=== PATIENT | male | born 1940 | race Caucasian/White ===

== ENCOUNTER 2016-05-17 12:33 | Inpatient (IN) | payer MEDICARE ==
[~2016-05-17] VITALS: Ht 177.8 cm; Wt 78.2 kg
[~2016-05-17 12:33] MED LIST: AMLO10TA2 PO; ASPI1TAB69 PO; CLOM50TA2 PO; COLA100C3 PO; LISI-515 PO; METF500T PO; MIRA33504 PO; NIAC500 PO
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
[2016-05-19 06:45] VITALS: BP 155/80; PULSE 55; RESP 16; TEMP 97.5; O2SAT 98
[2016-05-19] MEDS ORDERED: SODIUM CHLORID 0.9% 500 ML IV SCH (06:45)
[2016-05-19] MEDS ORDERED: METOPROLOL TARTRATE 25 MG TAB PO PRN (06:45)
[2016-05-19] MEDS ORDERED: LACTATED RINGER'S 1000 ML IV SCH (06:45)
[2016-05-19] MEDS ORDERED: SODIUM CHLOR 0.9% 1000 ML INJ 1,000 ML IV SCH (06:45)
[2016-05-19] MEDS ORDERED: VANCOMYCIN HCL 1000 MG ON-CALL/NS 250 ML IV SCH ×2 (06:45)
[2016-05-19] MEDS ORDERED: INSULIN HUMAN REGULAR 1,000 UNITS/10 ML VIAL SQ PRN (06:45)
[2016-05-19] MEDS ORDERED: THROMBIN (TOPICAL) 5,000 UNIT VIAL ONE (06:58)
[2016-05-19] MEDS ORDERED: VANCOMYCIN HCL 1000 MG VIAL ONE (06:58)
[2016-05-19] MEDS ORDERED: BUPIVACAINE/EPINEPHRINE 0.5% 50 ML VIAL ONE (06:58)
[2016-05-19] MEDS ORDERED: GELFOAM SIZE 100 ONE (06:58)
[2016-05-19 07:10] LABS: AUTOMATED NEUTROPHIL # 2.4 TH/MM3 (1.8-7.7); BASOPHIL % 0.7 % (0.0-2.0); EOSINOPHIL # 0.8 TH/MM3 (0-0.4); EOSINOPHIL % 13.9 % (0.0-4.0); HEMATOCRIT 43.1 % (39.0-51.0); HEMO FLAGS DIFF FINAL; LYMPHOCYTE # 1.6 TH/MM3 (1.0-4.8); MEAN CELL VOLUME 93.5 FL (80.0-100.0); MEAN CORPUSCULAR HEMOGLOBIN 31.8 PG (27.0-34.0); MEAN CORPUSCULAR HGB CONC 34.1 % (32.0-36.0); MONO % 10.4 % (0.0-8.0); PLATELET COUNT 236 TH/MM3 (150-450); RED BLOOD COUNT 4.61 MIL/MM3 (4.50-5.90); RED CELL DISTRIBUTION WIDTH 12.9 % (11.6-17.2); WHITE BLOOD COUNT 5.4 TH/MM3 (4.0-11.0)
[2016-05-19] MEDS ORDERED: FAMOTIDINE 20 MG/2 ML VIAL ONE (08:24)
[2016-05-19] MEDS ORDERED: VANCOMYCIN HCL 1000 MG VIAL OTHER ONE ×3 (09:24→12:13)
[2016-05-19] MEDS ORDERED: ePHEDrine/NS 50 MG/5 ML SYR IV ONE (12:00)
[2016-05-19] MEDS ORDERED: SODIUM CHLORID 0.9% 500 ML INJ 500 ML IV ONE (12:00)
[2016-05-19] MEDS ORDERED: PROPOFOL 200 MG/20 ML AMP IV ONE (12:00)
[2016-05-19] MEDS ORDERED: PHENYLEPH/NS 1000 MCG/10 ML SYR IV ONE (12:00)
[2016-05-19] MEDS ORDERED: NORMOSOL R INJ 2,000 ML IV ONE (12:00)
[2016-05-19] MEDS ORDERED: NEOSTIGMINE 3 MG/3 ML SYR IV ONE (12:00)
[2016-05-19] MEDS ORDERED: ONDANSETRON HCL 4 MG/2 ML VIAL IV PUSH ONE (12:00)
[2016-05-19] MEDS ORDERED: ONDANSETRON HCL 4 MG/2 ML VIAL IV PRN (12:45)
[2016-05-19] MEDS ORDERED: ACETAMINOPHEN 325 MG TAB PO PRN (12:45)
[2016-05-19] MEDS ORDERED: ACETAMINOPHEN/HYDROcodone 325 MG/10 MG TAB PO PRN (12:45)
[2016-05-19] MEDS ORDERED: ALUMINUM/MAGNESIUM/SIMETH 30 ML CUP PO PRN (12:45)
[2016-05-19] MEDS ORDERED: SODIUM CHLORIDE 0.9% FLUSH 5 ML FLUSH IVF PRN (12:45)
[2016-05-19] MEDS ORDERED: cloNIDine HCL 0.1 MG TAB PO PRN (12:45)
[2016-05-19] MEDS ORDERED: POTASSIUM CHLOR 20 MEQ PREMIX 100 ML IV PRN (12:45)
[2016-05-19] MEDS ORDERED: MENTHOL LOZENGE SUCK-ON PRN (12:45)
[2016-05-19] MEDS ORDERED: NALOXONE HCL 0.4 MG/ML AMP IV PRN (12:45)
[2016-05-19] MEDS ORDERED: DEXTROSE 50% IN WATER 50 ML VIAL(D50) IV PUSH PRN (12:45)
[2016-05-19] MEDS ORDERED: CYCLOBENZAPRINE HCL 10 MG TAB PO PRN (12:45)
[2016-05-19] MEDS ORDERED: GLUCAGON 1 MG/ML VIAL OTHER PRN (12:45)
[2016-05-19] MEDS ORDERED: MAGNESIUM SULFATE INJ 2 GM in SODIUM CHLORIDE 0.9% INJ 96 ML IV PRN (12:45)
[2016-05-19] MEDS ORDERED: RESP: ALBUTEROL 2.5 MG/3 ML NEB (PRN) NEB (12:45)
[2016-05-19] MEDS ORDERED: PROMETHAZINE INJ 25 MG/ML VIAL IM PRN (12:45)
[2016-05-19] MEDS ORDERED: CALCIUM GLUCONATE INJ 1 GM in SODIUM CHLORIDE 0.9% INJ 100 ML IV PRN (12:45)
[2016-05-19] MEDS ORDERED: ZOLPIDEM TARTRATE 5 MG TAB PO PRN (12:45)
[2016-05-19] MEDS ORDERED: diphenhydrAMINE HCL 50 MG/ML VIAL IV PRN (12:45)
[2016-05-19] MEDS ORDERED: DOCUSATE SODIUM 100 MG CAP PO PRN (12:45)
[2016-05-19] MEDS: NS + KCL 20 MEQ INJ 1,000 ML IV SCH (13:26)
--- NOTE | 2016-05-19 13:33 | RADRPT ---
EXAM DATE/TIME: 05/19/2016 08:46 [facility] COMPARISON: No previous studies available for comparison. INDICATIONS : L4-5, L5-S1 Fusion. MEDICAL HISTORY : Hypertension. Diabetes mellitus type II. SURGICAL HISTORY : None. ENCOUNTER: Initial ACUITY: 1 day PAIN SCORE: Non-responsive. LOCATION: Lumbar spine. CONCLUSION: Fluoroscopic images obtained in the operating room during placement of screws and rods fusing L4-S1. Dennis Rose MD on May 19, 2016 at 13:31 Board Certified Radiologist. This report was verified electronically.
[2016-05-19] MEDS: MORPHINE SULFATE 30 MG/30 ML PCA IV SCH (13:35)
[2016-05-19 13:52] LABS: AUTOMATED NEUTROPHIL # 12.3 TH/MM3 (1.8-7.7); BASOPHIL % 0.2 % (0.0-2.0); EOSINOPHIL % 0.3 % (0.0-4.0); HEMATOCRIT 41.5 % (39.0-51.0); HEMO FLAGS DIFF FINAL; LYMPH % 3.9 % (9.0-44.0); LYMPHOCYTE # 0.5 TH/MM3 (1.0-4.8); MEAN CELL VOLUME 95.1 FL (80.0-100.0); MEAN CORPUSCULAR HEMOGLOBIN 31.7 PG (27.0-34.0); MEAN CORPUSCULAR HGB CONC 33.3 % (32.0-36.0); MONO % 0.9 % (0.0-8.0); NEUT % 94.7 % (16.0-70.0); PLATELET COUNT 211 TH/MM3 (150-450); RED BLOOD COUNT 4.36 MIL/MM3 (4.50-5.90); RED CELL DISTRIBUTION WIDTH 13.1 % (11.6-17.2)
[2016-05-19] MEDS: PCA - TOTAL MG MORPHINE DELIVERED PER SHIFT SCH ×2 (14:00→21:13)
[2016-05-19] MEDS ORDERED: DO NOT ADM ANY ANTICOAGULANT DRUGS XX PRN (14:00)
[2016-05-19 14:17] LABS: BICARBONATE 24.4 MEQ/L (21.0-32.0); MAGNESIUM 1.9 MG/DL (1.5-2.5); POTASSIUM 3.4 MEQ/L (3.5-5.1)
[2016-05-19 14:45] VITALS: BP 136/74; PULSE 110; RESP 18; TEMP 95.7; O2SAT 97
[2016-05-19] MEDS ORDERED: MIDAZOLAM HCL 2 MG/2 ML VIAL ONE (14:56)
[2016-05-19] MEDS ORDERED: fentaNYL CITRATE 250 MCG/5 ML AMP ONE (14:56)
[2016-05-19] MEDS: INSULIN NovoLIN REGULAR SUPPLEMENTAL SCALE SQ SCH ×2 (16:00→21:00)
--- NOTE | 2016-05-19 16:04 | PD.OP ---
MD Marcus Bentley MD Stephen Minor, MD Operative Report Date of Surgery: May 19, 2016 Preoperative Diagnosis: Severe lumbar L4-5 and L5-S1 degenerative disc disease with disc height collapse along with disc protrusion, facet and ligamentum flavum hypertrophy with severe right foraminal stenosis; intractable low back pain with radiculopathy Postoperative Diagnosis: Same Procedure: Lumbar L4-5 and L5-S1 transforaminal decompression with interbody fusion; L4-S1 pedicle screw fixation; L4-5 and L5-S1 interbody cage placement; microsurgical technique Anesthesia: Gen. endotracheal by Keanu Rodriguez Surgeon: Bernard Underwood M.D. Gamb Cutter(s): Catalina Estrdaa Operation and Findings: Following initiation of general endotracheal anesthesia, the patient had a Conklin catheter placed along with sequential compression devices. A gram of vancomycin was administered intravenously and he was turned in a prone position on a Markie frame, on a Jayjay table, and all pressure points adequately padded. The lumbosacral region was then prepped with Chloraprep and sterilely draped with Ioban along the usual sterile draping. A right paraspinal skin incision was then made extending from the L4-L5-S1 levels after infiltrating the skin with 0.5% Marcaine with epinephrine solution extending down through the fascia. The muscle fibers were split using avascular fatty plane and detached from the underlying facets, transverse process and lateral portion of lamina on the right side and a self-retaining retractor used for exposure. Intraoperative fluoroscopy was also used for level of confirmation along with microscope magnification for further dissection. There was significant facet and ligamentum flavum hypertrophy noted at the L4-5 and L5-S1 levels. Right L4 -5 and L5-S1 facet was resected with a drill bit along with the lamina and there was severe foraminal and lateral recess stenosis from hypertrophied ligamentum flavum and facet which were decompressed bilaterally through the usual lateral approach. There was significant disc height collapse along with disc protrusion also leading to the foraminal stenosis. Epidural hemostasis was achieved with bipolar cautery and Gelfoam with thrombin. Subsequently entered into the disc space at the L4-5 level as well as L5-S1 level with a #15 blade and jayden were used for discectomy. I then placed PEEK cages packed with local autograft bone and more local autograft bone was packed adjacent to the cage in interspace for added interbody fusion at each level. With placement of the cages, I was able to distract the interspace and opened up the foramen further bilaterally. Subsequently in order to facilitate the fusion and provide stabilization, pedicle screw fixation was undertaken using [place] spine screws on entry point at the right L4, L5 levels at the junction of the transverse process and facet and right S1 sacral ala. Subsequently using AP and lateral fluoroscopy tap and screw placement. The screws were then connected with a zina and locked in place with caps. The construct appeared very secure at this point. The area was then copiously irrigated with Vancomycin solution and powder. The retractors were removed and the bipolar cautery used for hemostasis. The muscle fascia was then approximated using 2-0 Vicryl interrupted stitches and then 3-0 Vicryl subcuticular stitches also placed in interrupted fashion. The final skin closure was completed with Mastisol and Steri-Strips. A sterile dressing was then applied. The patient then turned in supine position, extubated and taken to recovery room. There were no intraoperative complications. All sponge and needle counts were correct at the end of procedure. Estimated blood loss about 100 ml. Bernard Underwood MD May 19, 2016 16:04
[2016-05-19 21:00] VITALS: BP 137/78; PULSE 102; RESP 16; TEMP 97.8; O2SAT 98
[2016-05-19] MEDS ORDERED: [UNRECOGNIZED DRUG - OTHER] PO SCH (21:00)
[2016-05-19] MEDS: SODIUM CHLORIDE 0.9% FLUSH 5 ML FLUSH IVF SCH (21:00)
[2016-05-19] MEDS ORDERED: CLOMIPHENE PO SCH (21:00)
[2016-05-19] MEDS: NIACIN 500 MG EXTENDED RELEASE TAB PO SCH (21:13)
[2016-05-19] MEDS: LISINOPRIL 20 MG TAB PO SCH (21:13)
[2016-05-19] MEDS: DOCUSATE SODIUM 100 MG CAP PO SCH (21:13)
[2016-05-20 01:50] VITALS: BP 133/67; PULSE 66; RESP 17; TEMP 98.2; O2SAT 98
[2016-05-20] MEDS: NS + KCL 20 MEQ INJ 1,000 ML IV SCH (02:30)
[2016-05-20 04:15] VITALS: BP 119/66; PULSE 59; RESP 17; TEMP 98; O2SAT 98
[2016-05-20 05:38] LABS: BICARBONATE 26.9 MEQ/L (21.0-32.0); POTASSIUM 4.8 MEQ/L (3.5-5.1)
[2016-05-20] MEDS: PCA - TOTAL MG MORPHINE DELIVERED PER SHIFT SCH ×3 (06:00→22:00)
[2016-05-20] MEDS: INSULIN NovoLIN REGULAR SUPPLEMENTAL SCALE SQ SCH ×4 (06:13→21:00)
[2016-05-20 07:34] VITALS: BP 146/63; PULSE 64; RESP 18; TEMP 98.9; O2SAT 96
[2016-05-20] MEDS: PANTOPRAZOLE SOD 40 MG DELAYED RELEASE TAB PO SCH (09:00)
[2016-05-20] MEDS: SODIUM CHLORIDE 0.9% FLUSH 5 ML FLUSH IVF SCH ×2 (09:00→20:36)
[2016-05-20] MEDS: LISINOPRIL 20 MG TAB PO SCH ×2 (09:41→20:36)
[2016-05-20] MEDS: DOCUSATE SODIUM 100 MG CAP PO SCH ×2 (09:41→20:36)
[2016-05-20] MEDS: ASPIRIN EC 81 MG TABEC PO SCH (09:41)
--- NOTE | 2016-05-20 10:27 | HHI.NSPN ---
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 (Dennis Glasgow) Interval History This is a 75-year-old male who presented to us for evaluation of pain in the right buttocks radiating down the posterior lateral right leg to the calf and ankle area. He states the pain started 8 months ago. The pain is worse in the buttocks and thigh. He denies any left lower extremity symptoms. He denies any paresthesias. He has been to pain management which helped but he states each injection is becoming less effective. He has also been to physical therapy which did not help him. He states right buttocks pain improves with laying down, is worse with standing or walking even short distances. He rates his pain as 8 out of 10 in intensity. He states he cannot live with this discomfort and his activity restriction. He denies any weakness or lower extremities. There is no bowel or bladder incontinence. 05/20/15: Pt doing well. 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 No radiculopathy or paresthesias in LEs. Pt ambulated in baig with PT. Urinating well. (Dennis Glasgow) Review of Systems General: Negative for: fever, chills, insomnia Respiratory: Negative for: shortness of breath, cough, sputum Cardiovascular: Negative for: chest pain Gastrointestinal: Negative for: nausea, vomitting, diarrhea, constipation ( Dennis Glasgow) Exam Results Vital Signs Date Time Temp Pulse Resp B/P Pulse Ox O2 Delivery O2 Flow Rate FiO2 05/20/16 07:34 98.9 64 18 146/63 96 05/19/16 14:29 Nasal Cannula 3 Intake and Output 05/19/16 05/19/16 05/20/16 08:00 16:00 00:00 Intake Total 2000 ml 1030 ml Output Total 750 ml Balance 2000 ml 280 ml (Dennis Glasgow) Physical Examination Resp: CTA bilaterally Heart: bradycardic. no murmurs Abd: Soft positive bs Skin: No cyanosis or erythema. Muscle: Moves all 4 extremities well. 5/5 strength in LEs. Neuro: Pt awake and alert. Follows commands well. Speech clear and appropriate. (Dennis Glasgow) Lab, Micro, Other Results Laboratory Tests Test 05/19/16 05/20/16 13:36 04:47 White Blood Count 13.0 TH/MM3 Red Blood Count 4.36 MIL/MM3 Hemoglobin 13.8 GM/DL Hematocrit 41.5 % Mean Corpuscular Volume 95.1 FL Mean Corpuscular Hemoglobin 31.7 PG Mean Corpuscular Hemoglobin 33.3 % Concent Red Cell Distribution Width 13.1 % Platelet Count 211 TH/MM3 Mean Platelet Volume 7.4 FL Neutrophils (%) (Auto) 94.7 % Lymphocytes (%) (Auto) 3.9 % Monocytes (%) (Auto) 0.9 % Eosinophils (%) (Auto) 0.3 % Basophils (%) (Auto) 0.2 % Neutrophils # (Auto) 12.3 TH/MM3 Lymphocytes # (Auto) 0.5 TH/MM3 Monocytes # (Auto) 0.1 TH/MM3 Eosinophils # (Auto) 0.0 TH/MM3 Basophils # (Auto) 0.0 TH/MM3 CBC Comment DIFF FINAL Differential Comment Sodium Level 138 MEQ/L 142 MEQ/L Potassium Level 3.4 MEQ/L 4.8 MEQ/L Chloride Level 103 MEQ/L 107 MEQ/L Carbon Dioxide Level 24.4 MEQ/L 26.9 MEQ/L Anion Gap 11 MEQ/L 8 MEQ/L Blood Urea Nitrogen 12 MG/DL 15 MG/DL Creatinine 0.93 MG/DL 1.18 MG/DL Estimat Glomerular Filtration 79 ML/MIN 60 ML/MIN Rate Random Glucose 220 MG/DL 182 MG/DL Calcium Level 8.1 MG/DL 8.3 MG/DL Magnesium Level 1.9 MG/DL 05/19/16 05/19/16 05/20/16 15:00 23:00 07:00 Intake Total 2000 ml 1030 ml 620 ml Output Total 750 ml Balance 2000 ml 280 ml 620 ml Intake Oral 450 ml IV Total 580 ml 620 ml Other 2000 ml Output Urine Total 750 ml (eDnnis Glasgow) Medical Decision Making Impression and Plan A: 75 y/o M s/p L4/L5 and L5/S1 TLIF with cage and pedicle screw fixation P: Continue with pain control Continue with PT 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 He is requesting his Metformin be restarted. We will restart his Metformin per his request and check his blood glucose bid. (Dennis Glasgow) Attending Statement The exam, history, and the medical decision-making described in the above note were completed with the assistance of the mid-level provider. I reviewed and agree with the findings presented. I attest that I had a [id number] encounter with the patient on the same day, and personally performed and documented my assessment and findings in the medical record. (Bernard Underwood MD) Dennis Glasgow May 20, 2016 10:27 Bernard Underwood MD May 20, 2016 15:03
[2016-05-20] MEDS: MORPHINE SULFATE 30 MG/30 ML PCA IV SCH (10:48)
[2016-05-20 11:35] VITALS: BP 158/74; PULSE 67; RESP 18; TEMP 98.3; O2SAT 96
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
[2016-05-20] MEDS ORDERED: CYCL1TAB29 PO (14:07)
[2016-05-20] MEDS ORDERED: HYDR-3366 PO (14:07)
[2016-05-20 16:00] VITALS: BP_SYST 102; BP_SYST 152; BP_DIAS 58; BP_DIAS 86; PULSE 82; PULSE 86; RESP 18; TEMP 96; TEMP 97.2; O2SAT 95
[2016-05-20 20:00] VITALS: BP 146/69; PULSE 73; RESP 16; TEMP 100.6; O2SAT 93
[2016-05-20] MEDS: MAGNESIUM HYDROXIDE SUSP 30 ML CUP PO PRN (20:36)
[2016-05-20] MEDS: NIACIN 500 MG EXTENDED RELEASE TAB PO SCH (20:36)
[2016-05-20] MEDS: CYCLOBENZAPRINE HCL 10 MG TAB PO SCH (20:36)
[2016-05-21] VITALS: BP 135/70; PULSE 55; RESP 20; TEMP 97.7; O2SAT 96
[2016-05-21] MEDS: ACETAMINOPHEN/HYDROcodone 325 MG/10 MG TAB PO PRN ×3 (03:36→17:43)
[2016-05-21] MEDS: PCA - TOTAL MG MORPHINE DELIVERED PER SHIFT SCH (04:19)
[2016-05-21] MEDS: CYCLOBENZAPRINE HCL 10 MG TAB PO SCH ×3 (05:00→20:52)
[2016-05-21 06:59] LABS: BICARBONATE 27.7 MEQ/L (21.0-32.0); POTASSIUM 4.1 MEQ/L (3.5-5.1)
[2016-05-21] MEDS: INSULIN NovoLIN REGULAR SUPPLEMENTAL SCALE SQ SCH ×5 (07:00→23:19)
[2016-05-21 07:09] LABS: AUTOMATED NEUTROPHIL # 7.8 TH/MM3 (1.8-7.7); BASOPHIL % 0.4 % (0.0-2.0); EOSINOPHIL # 0.2 TH/MM3 (0-0.4); EOSINOPHIL % 1.9 % (0.0-4.0); HEMATOCRIT 34.7 % (39.0-51.0); HEMO FLAGS DIFF FINAL; LYMPH % 13.9 % (9.0-44.0); LYMPHOCYTE # 1.5 TH/MM3 (1.0-4.8); MEAN CELL VOLUME 93.6 FL (80.0-100.0); MEAN CORPUSCULAR HEMOGLOBIN 31.8 PG (27.0-34.0); MONO % 10.7 % (0.0-8.0); NEUT % 73.1 % (16.0-70.0); PLATELET COUNT 191 TH/MM3 (150-450); RED BLOOD COUNT 3.71 MIL/MM3 (4.50-5.90); RED CELL DISTRIBUTION WIDTH 12.6 % (11.6-17.2); WHITE BLOOD COUNT 10.7 TH/MM3 (4.0-11.0)
[2016-05-21 08:00] VITALS: BP 145/70; PULSE 68; RESP 16; TEMP 99; O2SAT 94
[2016-05-21] MEDS: LISINOPRIL 20 MG TAB PO SCH ×2 (10:10→20:52)
[2016-05-21] MEDS: PANTOPRAZOLE SOD 40 MG DELAYED RELEASE TAB PO SCH (10:10)
[2016-05-21] MEDS: DOCUSATE SODIUM 100 MG CAP PO SCH ×4 (10:10→20:52)
[2016-05-21] MEDS: SODIUM CHLORIDE 0.9% FLUSH 5 ML FLUSH IVF SCH ×2 (10:11→20:52)
[2016-05-21] MEDS: ASPIRIN EC 81 MG TABEC PO SCH (10:11)
[2016-05-21] MEDS: metFORMIN HCL 500 MG TAB PO SCH (10:11)
[2016-05-21] MEDS: MAGNESIUM HYDROXIDE SUSP 30 ML CUP PO PRN (10:15)
[2016-05-21 12:00] VITALS: BP 124/71; PULSE 60; RESP 16; TEMP 97; O2SAT 94
[2016-05-21] MEDS: NS + KCL 20 MEQ INJ 1,000 ML IV SCH (12:04)
--- NOTE | 2016-05-21 14:39 | HHI.PR ---
Subjective Remarks No new complaints. Objective Vitals Vital Signs Date Time Temp Pulse Resp B/P Pulse Ox O2 Delivery O2 Flow Rate FiO2 05/21/16 08:00 99.0 68 16 145/70 94 05/21/16 00:00 97.7 55 20 135/70 96 05/20/16 20:00 100.6 73 16 146/69 93 05/20/16 19:00 Room Air 05/20/16 16:00 96.0 86 18 152/86 95 05/20/16 05/20/16 05/21/16 15:00 23:00 07:00 Intake Total 960 ml 480 ml 405 ml Output Total 1200 ml 675 ml 400 ml Balance -240 ml -195 ml 5 ml Intake Oral 960 ml 480 ml 240 ml IV Total 165 ml Output Urine Total 1200 ml 675 ml 400 ml # Bowel Movements 0 Result Diagram: 05/21/16 0515 05/21/16 0515 Imaging Last Impressions Lumbar Spine X-Ray 05/19/16 0000 Signed Impressions: Service Date/Time: May 08:46 - CONCLUSION: Fluoroscopic images obtained in the operating room during placement of screws and rods fusing L4-S1. Dennis Rose MD Objective Remarks GENERAL: This is a well-nourished, well-developed patient, in no apparent distress. CARDIOVASCULAR: Regular rate and rhythm without murmurs, gallops, or rubs. RESPIRATORY: Clear to auscultation. Breath sounds equal bilaterally. No wheezes , rales, or rhonchi. GASTROINTESTINAL: Abdomen soft, non-tender, nondistended. Normal active bowel sounds MUSCULOSKELETAL: Extremities without clubbing, cyanosis, or edema. NEURO: Alert & Oriented x4 to person, place, time, situation. Moves all ext x4 A/P Problem List: (1) Lumbar stenosis with neurogenic claudication Status: Chronic Plan: - Pt s/p L4/L5 and L5/S1 TLIF with cage and pedicle screw fixation with Dr. Underwood on 05/19/16 - Post-op pain control per NeuroSx - PT daily - IS - Constipation precautions - DVT prophylaxis 05/21/16 - pt interviewed and examined - continue treatment plan as outlined above (2) Low back pain Status: Chronic Plan: - See above (3) Diabetes mellitus Status: Chronic Plan: - Hgb A1C 6.0% on 04/12/16 - Metformin 500mg po daily - Accu checks BID (4) HTN (hypertension) Status: Chronic Plan: - stable - lisinopril, norvasc (5) Hyperlipidemia Status: Chronic Problem Qualifiers (1) Diabetes mellitus: Qualified Code: E11.8 - Type 2 diabetes mellitus with complication, without long-term current use of insulin (2) Hyperlipidemia: Qualified Code: E78.5 - Hyperlipidemia, unspecified hyperlipidemia type Jayme Michelle DO May 21, 2016 14:38
[2016-05-21] MEDS ORDERED: BISACODYL 10 MG SUPP PR PRN (15:00)
[2016-05-21] MEDS ORDERED: SOD PHOSPHATE/SOD BIPHOSPHATE (ADULT) ENEMA 133ML PR PRN (15:00)
[2016-05-21 16:00] VITALS: BP 152/75; PULSE 69; RESP 16; TEMP 98.5; O2SAT 94
[2016-05-21] MEDS: BISACODYL 10 MG SUPP PR PRN (16:21)
[2016-05-21 20:00] VITALS: BP 126/76; PULSE 61; RESP 16; TEMP 97.5; O2SAT 96
[2016-05-21] MEDS: NIACIN 500 MG EXTENDED RELEASE TAB PO SCH (20:51)
--- NOTE | 2016-05-21 23:22 | HHI.NSPN ---
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 Interval History L4-S1 TLIF 05/19/16. System Review Comments Moderate low back pain. No lower extremity symptoms. No bowel or bladder dysfunction. Exam Results Vital Signs Date Time Temp Pulse Resp B/P Pulse Ox O2 Delivery O2 Flow Rate FiO2 05/21/16 20:00 97.5 61 16 126/76 96 05/20/16 19:00 Room Air 05/19/16 14:29 3 Intake and Output 05/20/16 05/20/16 05/21/16 08:00 16:00 00:00 Intake Total 860 ml 720 ml 480 ml Output Total 600 ml 600 ml 675 ml Balance 260 ml 120 ml -195 ml Physical Examination Resp: CTA bilaterally Heart: bradycardic. no murmurs Abd: Soft positive bs Skin: No cyanosis or erythema. Muscle: Moves all 4 extremities well. 5/5 strength in LEs. Ambulates well without assistance. LSO brace in place Neuro: Pt awake and alert. Follows commands well. Speech clear and appropriate. Lab, Micro, Other Results Laboratory Tests Test 05/21/16 05:15 White Blood Count 10.7 TH/MM3 Red Blood Count 3.71 MIL/MM3 Hemoglobin 11.8 GM/DL Hematocrit 34.7 % Mean Corpuscular Volume 93.6 FL Mean Corpuscular Hemoglobin 31.8 PG Mean Corpuscular Hemoglobin 34.0 % Concent Red Cell Distribution Width 12.6 % Platelet Count 191 TH/MM3 Mean Platelet Volume 7.7 FL Neutrophils (%) (Auto) 73.1 % Lymphocytes (%) (Auto) 13.9 % Monocytes (%) (Auto) 10.7 % Eosinophils (%) (Auto) 1.9 % Basophils (%) (Auto) 0.4 % Neutrophils # (Auto) 7.8 TH/MM3 Lymphocytes # (Auto) 1.5 TH/MM3 Monocytes # (Auto) 1.2 TH/MM3 Eosinophils # (Auto) 0.2 TH/MM3 Basophils # (Auto) 0.0 TH/MM3 CBC Comment DIFF FINAL Differential Comment Sodium Level 135 MEQ/L Potassium Level 4.1 MEQ/L Chloride Level 102 MEQ/L Carbon Dioxide Level 27.7 MEQ/L Anion Gap 5 MEQ/L Blood Urea Nitrogen 15 MG/DL Creatinine 0.90 MG/DL Estimat Glomerular Filtration 82 ML/MIN Rate Random Glucose 111 MG/DL Calcium Level 8.2 MG/DL Magnesium Level 2.0 MG/DL Medical Decision Making Impression and Plan Impression: Doing well following L4-S1 TLIF No lower extremity symptoms or deficit. Plan: Patient encouraged to continue to increase ambulation as tolerated Continue present pain medications Diet as tolerated Plan discharge home 05/22/16 if continues to progress well. Renard Conrad MD May 21, 2016 23:22
[2016-05-22] VITALS: BP 114/54; PULSE 57; RESP 16; TEMP 97.6; O2SAT 97
[2016-05-22] MEDS: CYCLOBENZAPRINE HCL 10 MG TAB PO SCH ×3 (05:09→21:28)
[2016-05-22] MEDS: BISACODYL 10 MG SUPP PR PRN (05:09)
[2016-05-22] MEDS: ACETAMINOPHEN/HYDROcodone 325 MG/10 MG TAB PO PRN ×2 (05:09→21:29)
[2016-05-22] MEDS: MAGNESIUM HYDROXIDE SUSP 30 ML CUP PO PRN (07:49)
[2016-05-22] MEDS: LISINOPRIL 20 MG TAB PO SCH ×2 (07:49→21:28)
[2016-05-22] MEDS: ASPIRIN EC 81 MG TABEC PO SCH (07:49)
[2016-05-22] MEDS: metFORMIN HCL 500 MG TAB PO SCH (07:49)
[2016-05-22] MEDS: PANTOPRAZOLE SOD 40 MG DELAYED RELEASE TAB PO SCH (07:49)
[2016-05-22] MEDS: DOCUSATE SODIUM 100 MG CAP PO SCH ×4 (07:49→21:28)
[2016-05-22 08:00] VITALS: BP 158/79; PULSE 73; RESP 16; TEMP 97.8; O2SAT 94
[2016-05-22] MEDS: MAGNESIUM CITRATE SOLN 300 ML BTL PO ONE (09:00)
[2016-05-22 12:00] VITALS: BP 135/67; PULSE 64; RESP 16; TEMP 98.1; O2SAT 97
--- NOTE | 2016-05-22 12:59 | HHI.DCPOC ---
Discharge Care Plan Diagnosis: (1) Lumbar degenerative disc disease (2) Lumbar stenosis with neurogenic claudication Your Health Problems Are: Difficulty with ADL Incision/Drains Exercise Tolerance Chronic Pain Goals to Promote Your Health * To prevent worsening of your condition and complications * To maintain your health at the optimal level Directions to Meet Your Goals Take your medications as prescribed Follow your dietary instruction Follow activity as directed Keep your appointments as scheduled Take your immunizations and boosters as scheduled If your symptoms worsen call your PCP, if no PCP go to Urgent Care Center or Emergency Room Smoking is Dangerous to Your Health. Avoid second hand smoke Call the 24-hour hour crisis hotline for domestic abuse at Renard Conrad MD May 22, 2016 12:59
--- NOTE | 2016-05-22 13:02 | HHI.FF ---
Face to Face Verification Diagnosis: (1) Lumbar foraminal stenosis (2) Lumbar stenosis with neurogenic claudication (3) Lumbar disc prolapse with compression radiculopathy Physical Therapy Order: Evaluate and Treat, Improve ambulation, Strength and gait training I have seen patient Joseph Londono on 05/22/16. My clinical findings support the need for the requested home health care services because: Ltd mobility - disease progression Deconditioned w/ increased weakness Limited ability to care for self I certify that my clinical findings support that this patient is homebound because: Post-op weakness Unsteady gait/balance Unsafe to leave home unassisted Unable to use public transportation Renard Conrad MD May 22, 2016 13:02
[2016-05-22] MEDS: NS + KCL 20 MEQ INJ 1,000 ML IV SCH (15:00)
[2016-05-22 16:00] VITALS: BP 146/72; PULSE 69; RESP 16; TEMP 98.1; O2SAT 93
[2016-05-22 20:08] VITALS: BP 152/86; PULSE 86; RESP 17; TEMP 98.6; O2SAT 95
[2016-05-22] MEDS: NIACIN 500 MG EXTENDED RELEASE TAB PO SCH (21:28)
[2016-05-22] MEDS: SODIUM CHLORIDE 0.9% FLUSH 5 ML FLUSH IVF SCH (21:29)
--- NOTE | 2016-05-22 22:36 | HHI.NSPN ---
History Chief Complaint: Incisional back pain controlled with ALARM SECURITY OR SURVEILLANCE MONITOR. Interval History L4-S1 TLIF 05/19/16. 05/22/16: Patient initially doing relatively well in the morning, but in the afternoon significant nausea with some emesis reported per nursing staff Exam Results Vital Signs Date Time Temp Pulse Resp B/P Pulse Ox O2 Delivery O2 Flow Rate FiO2 05/22/16 16:00 98.1 69 16 146/72 93 05/20/16 19:00 Room Air 05/19/16 14:29 3 Intake and Output 05/21/16 05/21/16 05/22/16 08:00 16:00 00:00 Intake Total 405 ml 480 ml 480 ml Output Total 400 ml Balance 5 ml 480 ml 480 ml Physical Examination Resp: CTA bilaterally Heart: bradycardic. no murmurs Abd: Soft positive bs. Nontender. No distention Skin: No cyanosis or erythema. Muscle: Moves all 4 extremities well. 5/5 strength in LEs. Neuro: Mild lethargy. Follows commands well. Speech clear and appropriate. Medical Decision Making Impression and Plan Impression: Doing well following L4-S1 TLIF No lower extremity symptoms or deficit. Discharge home today held due to nausea and vomiting and difficulty with constipation. Plan: Patient encouraged to continue to increase ambulation as tolerated Continue present pain medications Diet as tolerated Plan discharge home 05/23/16 if no further GI symptoms. Recheck labs in Renard Tao MD May 22, 2016 22:36
[2016-05-23 00:04] VITALS: BP 117/57; PULSE 63; RESP 17; TEMP 98.4; O2SAT 92
[2016-05-23 00:38] VITALS: BP 102/55; PULSE 91; RESP 16; TEMP 98.4; O2SAT 98
[2016-05-23] MEDS: CYCLOBENZAPRINE HCL 10 MG TAB PO SCH ×2 (05:31→13:26)
[2016-05-23] MEDS: ACETAMINOPHEN/HYDROcodone 325 MG/10 MG TAB PO PRN (05:32)
[2016-05-23 06:38] LABS: AUTOMATED NEUTROPHIL # 4.4 TH/MM3 (1.8-7.7); BASOPHIL % 0.2 % (0.0-2.0); BICARBONATE 32.5 MEQ/L (21.0-32.0); EOSINOPHIL # 0.3 TH/MM3 (0-0.4); EOSINOPHIL % 4.5 % (0.0-4.0); HEMATOCRIT 36.1 % (39.0-51.0); HEMO FLAGS DIFF FINAL; LYMPHOCYTE # 1.5 TH/MM3 (1.0-4.8); MEAN CELL VOLUME 93.7 FL (80.0-100.0); MEAN CORPUSCULAR HEMOGLOBIN 31.9 PG (27.0-34.0); MEAN CORPUSCULAR HGB CONC 34.1 % (32.0-36.0); MONO % 10.7 % (0.0-8.0); NEUT % 62.6 % (16.0-70.0); PLATELET COUNT 226 TH/MM3 (150-450); POTASSIUM 4.7 MEQ/L (3.5-5.1); RED BLOOD COUNT 3.85 MIL/MM3 (4.50-5.90); RED CELL DISTRIBUTION WIDTH 12.4 % (11.6-17.2)
[2016-05-23 08:00] VITALS: BP 117/57; PULSE 61; RESP 19; TEMP 98.3; O2SAT 95
[2016-05-23] MEDS: DOCUSATE SODIUM 100 MG CAP PO SCH ×2 (09:00→09:42)
[2016-05-23] MEDS: metFORMIN HCL 500 MG TAB PO SCH (09:42)
[2016-05-23] MEDS: LISINOPRIL 20 MG TAB PO SCH (09:42)
[2016-05-23] MEDS: ASPIRIN EC 81 MG TABEC PO SCH (09:42)
[2016-05-23] MEDS: PANTOPRAZOLE SOD 40 MG DELAYED RELEASE TAB PO SCH (09:42)
[2016-05-23] MEDS: SODIUM CHLORIDE 0.9% FLUSH 5 ML FLUSH IVF SCH (09:44)
[2016-05-23 11:47] VITALS: BP 158/74; PULSE 62; RESP 18; TEMP 96; O2SAT 98
[2016-05-23] MEDS: NS + KCL 20 MEQ INJ 1,000 ML IV SCH (13:48)
--- NOTE | 2016-07-09 20:00 | HHI.DS ---
Discharge Summary Admission Date May 19, 2016 at 06:09 Discharge Date: May 23, 2016 Admitting Diagnosis (1) Lumbar stenosis with neurogenic claudication ICD Code: M48.06 (2) Low back pain Diagnosis: Principal ICD Code: M54.5 (3) Diabetes mellitus Diagnosis: Secondary ICD Code: E11.9 (4) HTN (hypertension) Diagnosis: Secondary ICD Code: I10 (5) Hyperlipidemia Diagnosis: Secondary ICD Code: E78.5 Procedures Lumbar L4/L5 and L5/S1 transforaminal decompression with interbody fusion; L4- S1 pedicle screw fixation; L4/L5 and L5/S1 interbody cage placement by Dr. Underwood on 05/19/16 Brief History This is a 75 y/o M who presented to us for an evaluation of pain in the right buttocks radiating down the posterior lateral right leg to the calf and ankle area. He states the pain started 8 months ago. The pain is worse in the buttocks and thigh. He denies any left lower extremity symptoms. He denies any paresthesias. He has been to pain management which helped but he states each injection is becoming less effective. he has also been to physical therapy which did not help him. He states right buttocks pain improves with laying down, is worse with standing or walking even short distances. He rates his pain as 8 out of 10 in intensity. He states he cannot live with this discomfort and his activity restriction. he denies any weakness in the lower extremities. There is no bowel or bladder incontinence. Imaging MRI of the lumbar spine from February 01, 2016 reveals multilevel degenerative disc disease with facet arthropathy and facet hypertrophy, and disc degeneration at the L4/L5 and L5/S1 level along with endplate changes and near complete disc height collapse and foraminal stenosis. Hospital Course Pt underwent the above noted procedure performed by Dr. Underwood. There was no intraoperative complications. Postoperatively pt was admitted to the medical/ surgical floor. Hospitalist was consulted for medial management. PT was consulted and pts activity was increased. Pts GEOLOGICAL ENGINEER was discontinued. Pts pain was controlled. He was discharged home in stable condition. Pt Condition on Discharge: Stable Discharge Disposition: Discharge Home Discharge Instructions DIET: Follow Instructions for: Diabetic Diet ACTIVITIES You can perform: Shower Only-No Bath Activities to Avoid: Lifting/Bending, Prolonged Standing, Strenuous Activity, Bathing, Driving Follow up Referrals: Home Health New Medications: Cyclobenzaprine (Flexeril) 10 Mg Tab 10 MG PO TID Muscle Spasm #60 Ref 0 TAB Hydrocodone-Acetaminophen (Daisy) 10-325 Mg Tab 1 TAB PO Q4H PRN PAIN #90 Ref 0 TAB Continued Medications: Amlodipine (Amlodipine) 10 Mg Tab 10 MG PO HS Blood Pressure Management #30 Ref 0 TAB Aspirin (Aspirin) 81 Mg Tabdr 81 MG PO DAILY TAB Clomiphene (Clomiphene) 50 Mg Tab 25 MG PO HS Docusate Sodium (Colace) 100 Mg Cap 100 MG PO BID PRN CONSTIPATION #60 Ref 0 CAP Lisinopril (Lisinopril) 20 Mg Tab 20 MG PO BID #30 Ref 0 TAB Metformin (Metformin) 500 Mg Tab 500 MG PO DAILY With a meal Blood Sugar Management #30 Ref 0 TAB Niacin ER (Niaspan) 500 Mg Tab 500 MG PO HS Cholesterol Management #30 Ref 0 TAB Polyethylene Glycol 3350 Powder (Miralax Powder) 17 Gm Powd Unknown Dose PO DAILY Mix and dissolve one measuring cap-ful (17 grams) in water or juice. PRN CONSTIPATION #1 Ref 0 BOTTLE Dennis Glasgow Jul 09, 2016 20:00
== END 2016-05-23 14:59 | disposition home or self-care (01) | DRG 460 ==
LOC: HSDI 05-19 06:09 → N06A 05-19 14:44
PROVIDERS: ADMIT Neurological Surgery; ATTEND Neurological Surgery
PROC: 0SG30AJ Fusion of Lumbosacral Joint with Interbody Fusion Device, Posterior Approach, Anterior Column, Open Approach (ICD-10-PCS; 2016-05-19)
PROC: 0ST20ZZ Resection of Lumbar Vertebral Disc, Open Approach (ICD-10-PCS; 2016-05-19)
PROC: 0ST40ZZ Resection of Lumbosacral Disc, Open Approach (ICD-10-PCS; 2016-05-19)
PROC: 0SG00AJ Fusion of Lumbar Vertebral Joint with Interbody Fusion Device, Posterior Approach, Anterior Column, Open Approach (ICD-10-PCS; principal; 2016-05-19 08:27)
DX: M51.16 Intervertebral disc disorders with radiculopathy, lumbar region (principal); E11.8 Type 2 diabetes mellitus with unspecified complications; R00.1 Bradycardia, unspecified; I10 Essential (primary) hypertension; M51.17 Intervertebral disc disorders with radiculopathy, lumbosacral region; E78.5 Hyperlipidemia, unspecified; N40.0 Benign prostatic hyperplasia without lower urinary tract symptoms; G47.33 Obstructive sleep apnea (adult) (pediatric); Z82.49 Family history of ischemic heart disease and other diseases of the circulatory system; Z80.0 Family history of malignant neoplasm of digestive organs; G89.29 Other chronic pain; R11.2 Nausea with vomiting, unspecified; K59.00 Constipation, unspecified
CPT/HCPCS: 72100; 76000; 80048; 82948; 83735; 85025; 86850; 86900; 86901; 94150; C1713; J0690; J2250; J2270; J2370; J2405; J2710; J3010; J3370; J3480; J7040; J7120; L0484

== ENCOUNTER 2016-08-14 06:27 | Inpatient (IN) | payer MEDICARE ==
[~2016-08-14] VITALS: Ht 177.8 cm; Wt 79.8 kg
[2016-08-14] VITALS (17 sets, daily range): BP systolic 118–177; BP diastolic 54–91; PULSE 40–87; RESP 15–28; TEMP 98.2–98.8; O2SAT 92–100
[~2016-08-14 06:27] MED LIST changes: +CYCL1TAB29 PO; +HYDR-3366 PO
[2016-08-14] MEDS ORDERED: SODIUM CHLOR 0.9% 1000 ML INJ 1,000 ML IV ONE ×2 (06:33→06:45)
[2016-08-14] MEDS ORDERED: HEPARIN SODIUM - IV 10,000 UNITS/10 ML VIAL IV STA (06:33)
[2016-08-14] MEDS ORDERED: ASPIRIN 81 MG CHEW TAB PO STA (06:33)
--- NOTE | 2016-08-14 06:40 | PD ---
HPI Chief Complaint: STEMI Alert Time Seen by Provider: 06:33 Travel History International Travel<30 days: No Contact w/Intl Traveler<30days: No Traveled to known affect area: No History of Present Illness HPI 75-year-old male with history of HTN, DM here with complaint of chest pain as a STEMI alert per EMS. Patient states that approximately 4 hours ago he began to have some burning substernal chest pain. This got worse over the course the last hour prompting him to call EMS. He notes associated shortness of breath, lightheadedness, nausea and diaphoresis. Upon EMS arrival twelve-lead EKG shows inferior ST elevation in II, III, and F aVF with reciprocal changes and semi-alert was activated. He was given aspirin, nitroglycerin prior to arrival without change in vital signs and he's remained hemodynamically stable per EMS. Patient denies any history of coronary disease, he believes he sees Dr. rivera of cardiology for control of his blood pressure but he is not positive. PFSH Past Medical History Cancer: No Cardiovascular Problems: Yes (HX HEART RHYTHM PROBLEM) Diabetes: Yes (TYPE II) Diminished Hearing: No Endocrine: Yes Genitourinary: Yes (ENLARGED PROSTATE) Hepatitis: No Hiatal Hernia: No Hypertension: Yes Immune Disorder: No Musculoskeletal: Yes (LOWER BACK PAIN, DDD) Neurologic: No Psychiatric: No Reproductive: No Respiratory: No (PAST HX SLEEP APNEA) Immunizations Current: Yes Thyroid Disease: No Past Surgical History Abdominal Surgery: No AICD: No Body Medical Devices: NONE Cardiac Surgery: No Ear Surgery: No Endocrine Surgery: No Eye Surgery: No Genitourinary Surgery: No Joint Replacement: No Oral Surgery: Yes (TONSILLECTOMY/ADENOIDECTOMY) Pacemaker: No Thoracic Surgery: No Other Surgery: Yes Social History Alcohol Use: No Tobacco Use: No Substance Use: No Allergies-Medications (Allergen,Severity, Reaction): Coded Allergies: HMG-CoA Reductase Inhibitors (Verified Allergy, Unknown, 06/30/16) Reported Meds & Prescriptions Reported Meds & Active Scripts Active [place] (Hydrocodone-Acetaminophen) 10-325 Mg Tab 1 Tab PO Q4H PRN Reported Colace (Docusate Sodium) 100 Mg Cap 100 Mg PO BID PRN Miralax Powder (Polyethylene Glycol 3350 Powder) 17 Gm Powd Unknown Dose PO DAILY PRN Mix and dissolve one measuring cap-ful (17 grams) in water or juice. Amlodipine (Amlodipine Besylate) 10 Mg Tab 10 Mg PO HS Niaspan (Niacin) 500 Mg Tab 500 Mg PO HS Metformin (Metformin HCl) 500 Mg Tab 500 Mg PO DAILY With a meal Lisinopril 20 Mg Tab 20 Mg PO BID Aspirin 81 Mg Tabdr 81 Mg PO DAILY Review of Systems ROS Limitations: Clinical Condition Except as stated in HPI: all other systems reviewed are Neg Physical Exam Exam Limitations: Clinical Condition Narrative GENERAL: Well-appearing male anxious SKIN: Cool and diaphoretic HEAD: Normocephalic. EYES: No scleral icterus. No injection or drainage. ENT: Mucous membranes pink and moist. NECK: Supple CARDIOVASCULAR: Regular rate and rhythm. No murmur appreciated. RESPIRATORY: No accessory muscle use. Clear to auscultation. Breath sounds equal bilaterally. GASTROINTESTINAL: Abdomen soft, non-tender, nondistended. MUSCULOSKELETAL: No obvious deformities. No edema. NEUROLOGICAL: Awake and alert. Motor grossly within normal limits. Normal speech. PSYCHIATRIC: Appropriate mood and affect; insight and judgment normal. Data Data Last Documented VS Vital Signs Date Time Temp Pulse Resp B/P Pulse Ox O2 Delivery O2 Flow Rate FiO2 08/14/16 06:37 97 Nasal Cannula 3 08/14/16 06:33 98.8 71 28 Orders Troponin I (08/14/16 06:33) Ckmb (Isoenzyme) Profile (08/14/16 06:33) Complete Blood Count With Diff (08/14/16 06:33) I-Stat Profile (08/14/16 06:33) I-Stat Creatinine (08/14/16 06:33) Calcium (08/14/16 06:33) Magnesium (Mg) (08/14/16 06:33) Prothrombin Time / Inr (Pt) (08/14/16 06:33) Act Partial Throm Time (Ptt) (08/14/16 06:33) B-Type Natriuretic Peptide (08/14/16 06:33) Chest, Single Ap (08/14/16 06:33) Electrocardiogram (08/14/16 06:33) Oxygen Administration (08/14/16 06:33) Iv Access Insert/Monitor (08/14/16 06:33) Oximetry (08/14/16 06:33) Sodium Chlor 0.9% 1000 Ml Inj (Ns 1000 M (08/14/16 06:33) Sodium Chloride 0.9% Flush (Ns Flush) (08/14/16 06:45) Aspirin Chew (Aspirin Chew) (08/14/16 06:33) Heparin Inj (Heparin Inj) (08/14/16 06:33) Morphine Inj (Morphine Inj) (08/14/16 06:45) Ondansetron Inj (Zofran Inj) (08/14/16 06:45) Sodium Chlor 0.9% 1000 Ml Inj (Ns 1000 M (08/14/16 06:45) Admit Order (Ed Use Only) (08/14/16 06:36) CKMB (08/14/16 06:26) CKMB% (08/14/16 06:26) Labs Laboratory Tests Test 08/14/16 06:26 Bedside Hemoglobin 13.9 G/DL Bedside Hematocrit 41.0 % Bedside Sodium 137 MMOL/L Bedside Potassium 4.0 MMOL/L Bedside Chloride 103 MMOL/L Bedside Blood Urea Nitrogen 27 MG/DL Bedside Creatinine 1.0 MG/DL Bedside Glucose 202 MG/DL Calcium Level 8.3 MG/DL Magnesium Level 1.9 MG/DL Total Creatine Kinase 121 U/L Creatine Kinase MB 1.9 NG/ML Troponin I 0.26 NG/ML MDM Medical Decision Making Medical Screen Exam Complete: Yes Emergency Medical Condition: Yes Medical Record Reviewed: Yes Differential Diagnosis 75-year-old male with history of DM, HTN here with complaint of chest pain. Differential includes ACS, GERD, atypical chest pain, coronary spasm, and less likely PE or dissection. Narrative Course Patient met by myself upon emergency department arrival, IV established and blood obtained. A twelve-lead EKG shows sinus rhythm with second-degree AV block with prolonging NC intervals most consistent with Wenckebach. Patient has ST elevation in inferior leads II, III, and F aVF with reciprocal changes. Right sided EKG was obtained without evidence of ST elevation in V4 R. Semi- alert was activated. Patient given normal saline bolus, aspirin, heparin, morphine and Zofran. Portal chest x-ray obtained that by my read shows no acute abnormalities, mild motion artifact. Serial blood pressures have remained stable and patient was given dose of nitroglycerin. Patient expedited to cardiac label printer. Critical Care Narrative Aggregate critical care time was 40 minutes. Time to perform other separately billable procedures was not included in the critical care time. My time did not include minutes spent treating any other patients simultaneously or on activities that did not directly contribute to the patient's treatment. The services I provided to this patient were to treat and/or prevent clinically significant deterioration that could result in: Cardiopulmonary decompensation, , disability I provided critical care services requiring my management, as noted below: Chart data review, documentation time, medication orders and management, vital sign assessments/reviewing monitor data, ordering and reviewing lab tests, ordering and interpreting/reviewing x-rays and diagnostic studies, care of the patient and discussion of the patient with the admitting physicians. Diagnosis Primary Impression: ST elevation myocardial infarction (STEMI) of inferior wall Additional Impression: 2Nd degree AV block Admitting Information Admitting Physician Requests: Admit Shruti Sy MD Aug 14, 2016 06:40
[2016-08-14] MEDS ORDERED: MORPHINE SULFATE 4 MG/ML INJ IV PUSH ONE ×2 (06:45→07:00)
[2016-08-14] MEDS ORDERED: ONDANSETRON HCL 4 MG/2 ML VIAL IV PUSH ONE (06:45)
[2016-08-14] MEDS ORDERED: SODIUM CHLORIDE 0.9% FLUSH 10 ML FLUSH IVF PRN (06:45)
--- NOTE | 2016-08-14 06:54 | RADRPT ---
EXAM DATE/TIME: 08/14/2016 06:28 [place] COMPARISON: No previous studies available for comparison. INDICATIONS : Chest pain, STEMI alert. MEDICAL HISTORY : Hypertension. Diabetes mellitus type II. SURGICAL HISTORY : None. ENCOUNTER: Initial ACUITY: 1 day PAIN SCORE: 8/10 LOCATION: Left chest FINDINGS: A single view of the chest demonstrates the lungs to be symmetrically aerated without evidence of mas s, infiltrate or effusion. The cardiomediastinal contours are unremarkable. Osseous structures are intact. CONCLUSION: No acute disease. Samuel Mon MD FACR on August 14, 2016 at 6:51 Board Certified Radiologist. This report was verified electronically.
[2016-08-14 06:56] LABS: I-STAT SODIUM 137 MMOL/L (138-146)
[2016-08-14 06:58] LABS: AUTOMATED NEUTROPHIL # 4.3 TH/MM3 (1.8-7.7); BASOPHIL # 0.1 TH/MM3 (0-0.2); BASOPHIL % 0.6 % (0.0-2.0); EOSINOPHIL # 0.5 TH/MM3 (0-0.4); EOSINOPHIL % 5.7 % (0.0-4.0); HEMATOCRIT 40.6 % (39.0-51.0); HEMO FLAGS DIFF FINAL; LYMPH % 39.8 % (9.0-44.0); LYMPHOCYTE # 3.7 TH/MM3 (1.0-4.8); MEAN CELL VOLUME 94.5 FL (80.0-100.0); MEAN CORPUSCULAR HEMOGLOBIN 32.6 PG (27.0-34.0); MEAN CORPUSCULAR HGB CONC 34.5 % (32.0-36.0); MONO % 7.2 % (0.0-8.0); NEUT % 46.7 % (16.0-70.0); PLATELET COUNT 255 TH/MM3 (150-450); RED BLOOD COUNT 4.29 MIL/MM3 (4.50-5.90); RED CELL DISTRIBUTION WIDTH 13.9 % (11.6-17.2); WHITE BLOOD COUNT 9.2 TH/MM3 (4.0-11.0)
[2016-08-14] MEDS ORDERED: NITROGLYCERIN 0.4 MG SL 25 TABS/BTL SL ONE (07:00)
[2016-08-14] MEDS ORDERED: NITROGLYCERIN INJ 5 ML ONE (07:14)
[2016-08-14] MEDS ORDERED: HEPARIN-NS/PF INJ 500 ML ONE (07:14)
[2016-08-14] MEDS ORDERED: HEPARIN SODIUM - IV 10,000 UNITS/10 ML VIAL ONE ×2 (07:14→08:01)
[2016-08-14] MEDS ORDERED: IOHEXOL 350 MG/ML 100 ML BTL (for Cath Lab) OTHER ONE (07:23)
[2016-08-14] MEDS ORDERED: MIDAZOLAM HCL 2 MG/2 ML VIAL ONE (07:24)
[2016-08-14 08:11] LABS: CREATINE KINASE 121 U/L (39-308); MAGNESIUM 1.9 MG/DL (1.5-2.5)
[2016-08-14 08:24] LABS: CKMB 1.9 NG/ML (0.5-3.6)
[2016-08-14] MEDS ORDERED: TICAGRELOR 90 MG TAB PO ONE (08:25)
[2016-08-14] MEDS ORDERED: ADENOSINE IV SOLN 3 MG/ML 2 ML VIAL ONE (08:26)
[2016-08-14] MEDS ORDERED: SODIUM NITROPRUSSIDE 50 MG/2 ML VIAL ONE (08:28)
[2016-08-14] MEDS ORDERED: NITROGLYCERIN-DEXTROSE INJ 250 ML ONE (08:59)
[2016-08-14] MEDS ORDERED: CLOPIDOGREL 300 MG TAB ONE (09:17)
[2016-08-14] MEDS: SODIUM CHLOR 0.9% 1000 ML INJ 1,000 ML IV SCH ×2 (09:35→19:35)
[2016-08-14] MEDS ORDERED: SODIUM CHLOR 0.9% 250 ML INJ 250 ML IV PRN (09:45)
[2016-08-14] MEDS ORDERED: MISC INFORMATION XX ONE (09:45)
[2016-08-14] MEDS ORDERED: MORPHINE SULFATE 4 MG/ML INJ IV PUSH PRN (09:45)
[2016-08-14] MEDS ORDERED: ATROPINE SULFATE 1 MG/ML VIAL IV PRN (09:45)
[2016-08-14] MEDS ORDERED: oxyCODONE/ACETAMINOPHEN 10 MG/325 MG TAB PO PRN (09:45)
[2016-08-14] MEDS ORDERED: oxyCODONE/ACETAMINOPHEN 5 MG/325 MG TAB PO PRN (09:45)
[2016-08-14] MEDS ORDERED: SODIUM CHLORIDE 0.9% FLUSH 10 ML FLUSH IV FLUSH PRN (09:45)
[2016-08-14] MEDS ORDERED: GLUCAGON 1 MG/ML VIAL OTHER PRN (10:30)
[2016-08-14] MEDS: INSULIN NovoLIN REGULAR SUPPLEMENTAL SCALE SQ SCH ×3 (10:30→20:48)
[2016-08-14] MEDS ORDERED: DEXTROSE 50% IN WATER 50 ML VIAL(D50) IV PUSH PRN (10:30)
[2016-08-14 10:32] LABS: PROTHROMBIN TIME - PATIENT 11.4 SEC (9.8-11.6)
[2016-08-14 10:34] LABS: APTT (PATIENT) GREATER THAN 153.4 SEC (24.3-30.1)
[2016-08-14] MEDS ORDERED: ONDANSETRON HCL 4 MG/2 ML VIAL IV PRN (11:00)
--- NOTE | 2016-08-14 12:00 | MB ---
cc: REGAN ADAIR M.D. DATE OF : 1940 DATE OF CONSULTATION: 08/14/2016 REASON FOR CONSULTATION: Critical care management. HISTORY OF PRESENT ILLNESS: The patient is a 75-year-old male with a past medical history of hypertension, diabetes mellitus and hyperlipidemia who presented with to [facility] ED with complaint of chest pain and STEMI alert per EMS. His chest pain was associated with shortness of breath, nausea, diaphoresis and feeling lightheaded. Upon EMS arrival, a 12-lead EKG showed inferior ST elevation in lead 2, 3 and aVF. The patient was given aspirin, nitroglycerin prior to arrival. He denies any history of coronary artery disease and he sees Dr. Pearl from cardiology for his hypertension. The patient was taken to the pit laborer where he underwent cardiac catheterization by Dr. Holland which showed occlusion of the RCA, status post stent placement, 60 to 70% occlusion of the mid LAD, and total occlusion of the obtuse margin. He was given Plavix, heparin, aspirin and placed on a nitro drip. When seen in the CV ICU the patient appears hemodynamically stable with blood pressure of 135/80 with a pulse of 48. The patient is on 2 liters oxygen with sats of 97%. He denies any chest pain at the present time. PAST MEDICAL HISTORY: Significant for hypertension, diabetes mellitus, hyperlipidemia and enlarged prostate. PAST SURGICAL HISTORY Previous tonsillectomy and adenoidectomy, previous spinal fusion. SOCIAL HISTORY Nonsmoker, nondrinker. ALLERGIES STATINS REPORTED MEDICATIONS: 1. Flexeril. 2. [place]. 3. Niacin. 4. Metformin. 5. Lisinopril. 6. Aspirin. 7. Amlodipine FAMILY HISTORY: Noncontributory. REVIEW OF SYSTEMS: As per HPI. The rest of the review of systems is unremarkable. FAMILY HISTORY Noncontributory. PHYSICAL EXAMINATION: The patient is a 75-year-old male lying in bed in no acute distress. Vital signs: Afebrile, temperature 98.8, blood pressure 135/80. Pulse of 48. Saturation 97% on two liters oxygen. HEENT: Atraumatic, normocephalic. Pupil equal, round, reactive to light and accommodation. Extraocular muscles intact. Conjunctivae pink. Nonicteric sclerae. Oral mucosa within normal. Neck: Supple. No JVD, adenopathy or thyromegaly. Trachea midline. Cardiovascular: Regular rate and rhythm. Normal S1-S2. No murmurs, rubs or gallops noted. Pulmonary exam: Bilateral equal air entry. No rales or wheezing. Abdomen: Soft, nontender, no distension. Positive bowel sounds. Extremities: No cyanosis, clubbing or edema. Neuro: No focal sensory deficit. LABORATORY DATA Point of care, sodium of 137, potassium 4, chloride 103, BUN 27, creatinine 1, glucose 202, calcium 8.3, total CK 121 with troponin 0.26, BNP 144, WBC 9.2, hemoglobin 14, hematocrit 40, platelet count of 255. IMAGING STUDIES: Chest x-ray in the ER showed no acute disease. EKG showed ST elevation in inferior leads 2, 3, and aVF, left axis deviation. Sinus rhythm with second-degree AV block, Mobitz type 2. IMPRESSION 1. Respiratory insufficiency. 2. Acute coronary syndrome. 3. ST elevation myocardial infarction. 4. Mobitz type 2 second-degree AV block. 5. Hypertension. 6. Diabetes mellitus. 7. Hyperlipidemia. RECOMMENDATIONS -Monitor neuro status and avoid any sedatives. The patient is awake and alert. -Continue with oxygen and maintain sats above 92%. Bronchodilator on a p.r.n. basis. -Monitor heart rate and blood pressure closely and maintain MAP greater than 65 mmHg. -Continue with aspirin 81 mg daily and Plavix 75 mg p.o. daily. -Status post cardiac cath which showed occlusion of the RCA status post stent placement in addition, 60 to 70% occlusion mid LAD and 99-100% occlusion of the obtuse margin. Case was discussed with Dr. Holland. Follow up on the echo results. -The patient is not on statins due to allergies and is not on a beta-paul due to second degree A-V block. -Will monitor renal function, I&O and electrolyte replacement as needed. Continue with IV fluids. He was placed on NS at 100 mL per hour. -Start p.o. heart healthy diet. -Monitor CBC for signs of infection which include fever and WBC. chest x-ray on arrival showed no evidence of any acute disease. Will culture if spikes a fever. -Place on sliding scale insulin with Accu-Chek q. 6-hour for glycemic control. -No indications for GI prophylaxis. DVT prophylaxis with heparin subcu. Patient denies any chest pain and appears hemodynamically stable will sign off. MD NANY Oleary/CLIVE /10:34 AM /11:21 AM [place]
[2016-08-14] MEDS: HEPARIN SODIUM - SQ 10,000 UNITS/ML VIAL SQ SCH ×2 (14:00→20:48)
--- NOTE | 2016-08-14 18:12 | MH ---
cc: DUMONTVALENTÍN DO DATE OF ADMISSION 08/14/[address] Kareen Gorman PRIMARY MEETING/EVENT PLANNER Dr. Nathaniel Pearl CHIEF COMPLAINT Chest pain. HISTORY OF THE PRESENT ILLNESS Joseph Londono is a pleasant 75-year-old male who presents to [facility] Emergency Room on August 14, 2016 due to chest pain. He states that he woke up around 2-3 a.m. and was having some burning in the substernal portion of his chest. This seemed to get worse over the course of an hour, so he finally called EMS. He does have some shortness of breath, nausea and diaphoresis. Upon arrival EKG was done showing inferior ST elevations in leads II, III and aVF. At that time a STEMI alert was called. Of note, after talking with his he was to undergo back surgery and when placed under anesthesia he started to "skip a beat". It sounds like he went into a Wenckebach rhythm. Surgery was abandoned and he followed up with Dr. Pearl for testing. After this he underwent successful back surgery with no complications. PAST MEDICAL HISTORY 1. Hypertension. 2. Diabetes mellitus. 3. Hyperlipidemia. 4. Enlarged prostate. PAST SURGICAL HISTORY 1. Spinal fusion. 2. Tonsillectomy and adenoidectomy. ALLERGIES STATINS. MEDICATIONS 1. Lisinopril 20 mg b.i.d. 2. Niacin ER 500 mg every night. 3. Metformin 500 mg daily. 4. Colace 100 mg b.i.d. 5. Maalox as needed. 6. Flexeril 10 mg t.i.d. 7. Norvasc 10 mg every night. 8. Clomiphene 25 milligrams every night. 9. Aspirin 81 mg daily. 10. [place] 1 tablet every 4 hours as needed for pain. SOCIAL HISTORY Denies tobacco, alcohol or drug abuse. FAMILY HISTORY Denies premature coronary artery disease or sudden cardiac within the family. REVIEW OF SYSTEMS 14-systems were reviewed including osteopathic, pertinent positives and negatives above, otherwise negative. PHYSICAL EXAMINATION VITAL SIGNS: Temperature 98.8, heart rate 87, blood pressure 152/81, respirations 28, pulse ox 97% on 3 liters. GENERAL: In general the patient appears in moderate to severe distress due to chest pain. HEENT: Extraocular muscles intact. Mucous membranes moist. NECK: Supple. No JVD at 45 degrees. No carotid bruits heard bilaterally. Carotid upstroke is brisk in nature. CARDIOVASCULAR: Heart is regular rate and rhythm. Positive first and second heart sounds with no noted murmurs, rubs, or gallops. LUNGS: Clear to auscultation bilaterally. No wheezes, rales or rhonchi. ABDOMEN: Soft, nontender, nondistended. No organomegaly noted. EXTREMITIES: Show no clubbing, cyanosis or edema. Femoral and distal pulses intact bilaterally. NEUROLOGIC: No focal deficits. SKIN: Warm, dry and intact. OSTEOPATHIC: No kyphoscoliosis, lordosis or paraspinal tender points. LABORATORY FINDINGS Hemoglobin 13.9, hematocrit 41.0. Potassium 4.0, BUN 27, creatinine 1.0. Troponin 0.26. Electrocardiogram (August 14, 2016 at 0631) sinus rhythm with second degree AV block, Mobitz type 1, left axis deviation, acute ST elevations inferiorly with ST depressions anteriorly consistent with an inferior posterior acute [place]. IMPRESSION 1. Acute inferior posterior myocardial infarction. 2. Chest pain concerning for coronary insufficiency. 3. History of hypertension. 4. History of hyperlipidemia. 5. History of diabetes mellitus. 6. History of a "skipping heartbeat" which sounds like possible Wenckebach. 7. Currently in second degree type 1 AV block, Wenckebach. RECOMMENDATIONS 1. Mr. Londono is currently have an acute inferior ST elevation myocardial infarction and because of this he will be taken to the lab emergently. 2. He understands risks, benefits and alternative and consents as such. 3. Will check a 2-D echo to look at his overall left ventricular function, cardiac structure and possible valvopathies. 4. Metformin will be held for 48 hours after cardiac catheterization. 5. Further recommendations will be made after coronary visualization. Thank you for allowing me to see Joseph Londono. If there are any questions please do not hesitate to call. Valentín Dumont DO VGP/KK /1:33 PM /5:52 PM
[2016-08-14] MEDS: SODIUM CHLORIDE 0.9% FLUSH 10 ML FLUSH IV FLUSH SCH (20:47)
--- NOTE | 2016-08-14 20:54 | EKG ---
Date Performed: 08/14/2016 Time Performed: 06:33:20 PTAGE: 75 years EKG: Sinus rhythm WITH 2ND DEGREE AV BLOCK, MOBITZ TYPE II MARKED LEFT AXIS DEVIATION POSSIBLE ANTERIOR MYOCARDIAL INF ARCTION MARKED ST ELEVATION, CONSIDER INFERIOR INJURY ACUTE [place] PREVIOUS TRACING : 04/23/2013 08.08 DOCTOR: Meliza Garcias Interpretating Date/Time 08/14/2016 20:52:51
--- NOTE | 2016-08-14 20:56 | EKG ---
Date Performed: 08/14/2016 Time Performed: 06:31:36 PTAGE: 75 years EKG: Sinus rhythm WITH 2ND DEGREE AV BLOCK, MOBITZ TYPE I (WECOLTKECODIE) MARKED ST ELEVATION, CONSIDER INFERIOR INJURY * ACUTE [place] PREVIOUS TRACING : 04/23/2013 08.08 DOCTOR: Meliza Garcias Interpretating Date/Time 08/14/2016 20:55:52
[2016-08-15 03:31] VITALS: BP 127/72; PULSE 61; PULSE 62; RESP 15; TEMP 98; O2SAT 95
[2016-08-15] MEDS: INSULIN NovoLIN REGULAR SUPPLEMENTAL SCALE SQ SCH ×4 (04:30→16:30)
[2016-08-15 06:00] LABS: AUTOMATED NEUTROPHIL # 4.9 TH/MM3 (1.8-7.7); BASOPHIL % 0.3 % (0.0-2.0); EOSINOPHIL # 0.2 TH/MM3 (0-0.4); EOSINOPHIL % 2.5 % (0.0-4.0); HEMATOCRIT 32.7 % (39.0-51.0); HEMO FLAGS DIFF FINAL; LYMPH % 18.5 % (9.0-44.0); LYMPHOCYTE # 1.3 TH/MM3 (1.0-4.8); MEAN CELL VOLUME 94.1 FL (80.0-100.0); MONO % 8.8 % (0.0-8.0); NEUT % 69.9 % (16.0-70.0); PLATELET COUNT 187 TH/MM3 (150-450); RED BLOOD COUNT 3.48 MIL/MM3 (4.50-5.90); RED CELL DISTRIBUTION WIDTH 14.1 % (11.6-17.2); WHITE BLOOD COUNT 7.1 TH/MM3 (4.0-11.0)
[2016-08-15] MEDS: HEPARIN SODIUM - SQ 10,000 UNITS/ML VIAL SQ SCH ×3 (06:22→20:35)
[2016-08-15 06:24] LABS: BICARBONATE 28.8 MEQ/L (21.0-32.0); POTASSIUM 3.7 MEQ/L (3.5-5.1)
[2016-08-15 07:17] VITALS: O2SAT 95
[2016-08-15 07:33] VITALS: BP 128/78; PULSE 66; RESP 20; TEMP 99.3; O2SAT 95
--- NOTE | 2016-08-15 07:46 | PD.CARD.PN ---
Subjective Subjective Remarks denies chest pain (Adriano Menezes) Objective Vital Signs / I&O Vital Signs Date Time Temp Pulse Resp B/P Pulse Ox O2 Delivery O2 Flow Rate FiO2 08/15/16 07:33 99.3 66 20 128/78 95 08/15/16 07:32 95 Room Air 08/15/16 07:17 95 21 08/15/16 03:31 97 Room Air 08/15/16 03:31 98.0 62 15 127/72 95 08/15/16 03:31 61 08/14/16 23:09 98.2 47 15 118/60 97 08/14/16 23:09 97 Room Air 08/14/16 23:09 55 08/14/16 21:40 96 21 08/14/16 19:24 98.4 59 16 146/84 99 08/14/16 19:24 99 Nasal Cannula 2.00 08/14/16 19:00 59 08/14/16 16:00 99 Nasal Cannula 2.00 08/14/16 15:00 70 08/14/16 15:00 98.6 63 16 126/73 100 08/14/16 13:43 100 2.00 08/14/16 12:00 100 Nasal Cannula 2.00 08/14/16 11:00 98.3 63 16 146/54 99 Arterial Line 08/14/16 09:40 95 21 08/14/16 09:30 98 Nasal Cannula 2.00 08/14/16 09:30 98.2 40 16 135/80 98 159/69 08/14/16 09:30 50 I/O 08/14/16 08/14/16 08/14/16 08/15/16 08/15/16 08/15/16 07:00 15:00 23:00 07:00 15:00 23:00 Intake Total 1026 ml 750 ml Output Total 1750 ml 1650 ml Balance -724 ml -900 ml Intake Oral 600 ml 480 ml IV Total 426 ml 270 ml Output Urine Total 1750 ml 1650 ml # Bowel Movements 0 0 Physical Exam GENERAL: Well-nourished, well-developed patient in no apparent distress. NECK: No JVD. No carotid bruit. CARDIOVASCULAR: Regular rate and rhythm. S1/S2 no murmur, rub, or gallop. RESPIRATORY: No accessory muscle use. Clear to auscultation. Breath sounds equal bilaterally. GASTROINTESTINAL: Abdomen soft, non-tender, nondistended. MUSCULOSKELETAL: Extremities without clubbing, cyanosis, or edema. Laboratory Laboratory Tests Test 08/14/16 08/15/16 09:42 05:10 White Blood Count 9.2 TH/MM3 7.1 TH/MM3 Red Blood Count 4.29 MIL/MM3 3.48 MIL/MM3 Hemoglobin 14.0 GM/DL 11.1 GM/DL Hematocrit 40.6 % 32.7 % Mean Corpuscular Volume 94.5 FL 94.1 FL Mean Corpuscular Hemoglobin 32.6 PG 32.0 PG Mean Corpuscular Hemoglobin 34.5 % 34.0 % Concent Red Cell Distribution Width 13.9 % 14.1 % Platelet Count 255 TH/MM3 187 TH/MM3 Mean Platelet Volume 7.8 FL 7.8 FL Neutrophils (%) (Auto) 46.7 % 69.9 % Lymphocytes (%) (Auto) 39.8 % 18.5 % Monocytes (%) (Auto) 7.2 % 8.8 % Eosinophils (%) (Auto) 5.7 % 2.5 % Basophils (%) (Auto) 0.6 % 0.3 % Neutrophils # (Auto) 4.3 TH/MM3 4.9 TH/MM3 Lymphocytes # (Auto) 3.7 TH/MM3 1.3 TH/MM3 Monocytes # (Auto) 0.7 TH/MM3 0.6 TH/MM3 Eosinophils # (Auto) 0.5 TH/MM3 0.2 TH/MM3 Basophils # (Auto) 0.1 TH/MM3 0.0 TH/MM3 CBC Comment DIFF FINAL DIFF FINAL Differential Comment Prothrombin Time 11.4 SEC Prothromb Time International 1.0 RATIO Ratio Activated Partial GREATER THAN Thromboplast Time 153.4 SEC B-Type Natriuretic Peptide 144 PG/ML Sodium Level 140 MEQ/L Potassium Level 3.7 MEQ/L Chloride Level 105 MEQ/L Carbon Dioxide Level 28.8 MEQ/L Anion Gap 6 MEQ/L Blood Urea Nitrogen 13 MG/DL Creatinine 0.89 MG/DL Estimat Glomerular Filtration 83 ML/MIN Rate Random Glucose 118 MG/DL Calcium Level 8.4 MG/DL Phosphorus Level 1.9 MG/DL Magnesium Level 2.0 MG/DL (Adriano Menezes) Assessment and Plan Problem List: (1) ST elevation myocardial infarction (STEMI) of inferior wall (2) HTN (hypertension) (3) Hyperlipidemia (4) 2Nd degree AV block Assessment and Plan s/p coronary angiogram on asa and Plavix His blood pressure is controlled He cannot take statin drugs I do not see 2nd degree AVB on the tele monitor this morning (Adriano Menezes ) Assessment and Plan STEMI - s/p PCI MIRTA RCA. Residual LAD and small vessel LCx disease. continue asa and plavix No BB due to bradycardia and AVB clinically doing well. Ok to transfer to telemetry floor under [facility] hospitalist. DC planning possibly for tomorrow will likely stage PCI LAD after full recovery from [place] FU on 2d echo. ambulate allergic to statin therapy (Nathaniel Pearl MD) Adriano Menezes Aug 15, 2016 07:46 Nathaniel Pearl MD Aug 15, 2016 08:35
--- NOTE | 2016-08-15 07:54 | MA ---
cc: VALENTÍN DUMONT DO DATE OF PROCEDURE August 14, 2016 PROCEDURE Left heart catheterization, coronary angiogram, drug-eluting stent to RCA, moderate sedation for 90 minutes. PREPROCEDURE DIAGNOSIS Acute inferior ST-elevation myocardial infarction. POSTPROCEDURE DIAGNOSIS 1. Acute inferior ST-elevation myocardial infarction, status post Resolute drug-eluting stent (3 x 26) to the RCA. 2. Multivessel coronary artery disease. MEDICATIONS GIVEN 1. Versed 0.5 mg. 2. Fentanyl 50 mcg. 3. Heparin 9000 units. 4. Nipride 75 mcg. 5. Nitro 200 mcg. 6. Plavix 600 mg. FLUOROSCOPY 33 minutes. CONTRAST 200 mL. ANESTHESIA Moderate sedation for 90 minutes. PROCEDURAL SUMMARY Joseph Londono is pleasant 75-year-old male who presented with an acute inferior ST-elevation myocardial infarction. The risks, benefits and alternatives were explained to him and he consented to such. He was brought to the lab and prepped in the usual sterile fashion. The right femoral artery was accessed using a modified Seldinger technique with a micropuncture needle and placement of a 6-Frisian sheath. This was easily aspirated and flushed. Right femoral artery angiogram shows no significant disease. A JR-4 was then advanced over a J-wire to the ascending aorta for selective angiography of the right coronary artery. This shows an occlusion in the midportion which appears acute in nature. The JR-4 was then exchanged for a JR-4 guide. I attempted to wire the lesion with a BMW wire but due to tortuosity and calcification I was unable to get through and lost guide support. Because this is an extremely difficult lesion due to calcification and the takeoff of the RCA, the JR-4 guide was exchanged for an AL-1 guide. A BMW was then advanced into the lesion but unable to cross. The BMW wire was then exchanged for a Run-Through wire which crossed the lesion and was placed in the distal vessel. A Compliant balloon (2 x 12) was then inflated over the lesion. There was minimal flow through the lesion at that time with significant thrombus and it was felt that the lesion needed to be prepped better. A noncompliant balloon (2 x 12) was then placed across the lesion and inflated. This was then exchanged for a Compliant balloon (2.75 x 10). I attempted to place a Resolute drug-eluting stent (t3 x 30) but was unable to advance it far enough to feel that I covered the whole lesion distally. This was then removed and a Resolute drug-eluting stent (3 x 26) was advanced to the distal portion of the lesion. It was then inflated across the middle portion of the lesion. The mid and distal portions of the stent were opposed to the vessel wall with a Non-Compliant balloon (3 x 15). As the proximal portion of the stent is in a large resection of the vessel, this was opposed with a Non-Compliant balloon (3.5 x 6). The patient was noted to have some slow flow through the vessel and so he was given Nipride 75 mcg. There was also a concern for disease versus spasm in the distal PDA and he was given 200 mcg of nitroglycerin. The PDA is diffusely diseased with three significant lesions of 70-80% in a relatively small vessel. It was felt at this time further intervention on this would not be helpful. After Nipride and nitroglycerin intracoronary, flow throughout the RCA was TIFFANY-3. The AL-1 guide was then removed and placement of a JR-4 catheter. This was used to cross the aortic valve and measurement of left ventricular end-diastolic pressures which were 12. This was pulled back across the aortic valve showing no significant gradient of aortic stenosis. The JR-4 catheter was then exchanged for a JL-4 catheter. Selective angiography of the left main shows a relatively normal vessel which trifurcates into an LAD, ramus and left circumflex. The LAD has 30-40% diffuse disease in the proximal portion. The midportion of the LAD has diffuse disease of 60-70%. The ramus is a relatively large vessel with 10-20% in the proximal portion. The left circumflex is a normal-appearing vessel that gives off three major obtuse marginals. The first obtuse marginal appears to be subtotally occluded at the ostium and fills either through the subtotal occlusion or [id number] collaterals in an antegrade fashion. At this time the patient was having minimal chest pressure at 1/10. It was felt that this was more likely due to his recent intervention as well as slow flow in the distal RCA. The obtuse marginal is a relatively small vessel and felt to be chronically occluded. Mr. Londono was placed on a nitroglycerin drip at 5 mcg per minute and this relieved his chest pain. The JL-4 was then removed over a J-wire. The right femoral sheath was sutured into place with a plan to remove later today once ACTs were an appropriate range. The patient left the Ventilator Specialist cardiovascularly stable. IMPRESSION 1. Acute inferior ST elevation myocardial infarction, status post Resolute drug-eluting stent (3 x 26). 2. Significant coronary artery disease as above. RECOMMENDATIONS 1. Mr. Londono underwent placement of a drug-eluting stent in his RCA. Because of this he will be placed on aspirin and Plavix with a plan for aspirin indefinitely and Plavix for least 12 months. 2. As far as his other lesions, these will be discussed with Dr. Pearl and recommendations based on discussion between him and Mr. Londono. 3. We will check a 2-D echo to look at his overall left ventricular function, cardiac structure and possible valopathies. 4. His metformin should be held for 48 hours post cardiac catheterization. 5. He will not be placed on a beta paul due to current AV block which appears to be Wenckebach. 6. He will not be placed on a statin due to allergy. 7. Dr. Pearl will follow in the morning. Thank you for allowing me to see Joseph Londono. If there are any questions, please do not hesitate to call. Valentín Dumont DO VGP/SSB /1:43 PM /7:02 AM
[2016-08-15] MEDS: CLOPIDOGREL 75 MG TAB PO SCH (08:47)
[2016-08-15] MEDS: SODIUM CHLORIDE 0.9% FLUSH 10 ML FLUSH IV FLUSH SCH ×2 (08:47→20:35)
[2016-08-15] MEDS: ASPIRIN 81 MG CHEW TAB PO SCH (08:47)
[2016-08-15 11:09] VITALS: BP 143/79; PULSE 59; RESP 20; TEMP 98.6; O2SAT 98
[2016-08-15] MEDS ORDERED: POLYETHYLENE GLYCOL 17 GM PKG PO PRN (14:15)
--- NOTE | 2016-08-15 14:18 | HHI.PR ---
Subjective Remarks Pt feeling well today Denies any chest pain or SOB Objective Vitals Vital Signs Date Time Temp Pulse Resp B/P Pulse Ox O2 Delivery O2 Flow Rate FiO2 08/15/16 11:11 98 Room Air 08/15/16 11:09 98.6 59 20 143/79 98 08/15/16 07:33 99.3 66 20 128/78 95 08/15/16 07:32 95 Room Air 08/15/16 07:17 95 21 08/15/16 03:31 97 Room Air 08/15/16 03:31 98.0 62 15 127/72 95 08/15/16 03:31 61 08/14/16 23:09 98.2 47 15 118/60 97 08/14/16 23:09 97 Room Air 08/14/16 23:09 55 08/14/16 21:40 96 21 08/14/16 19:24 98.4 59 16 146/84 99 08/14/16 19:24 99 Nasal Cannula 2.00 08/14/16 19:00 59 08/14/16 16:00 99 Nasal Cannula 2.00 08/14/16 15:00 70 08/14/16 15:00 98.6 63 16 126/73 100 08/14/16 08/14/16 08/15/16 15:00 23:00 07:00 Intake Total 1026 ml 750 ml Output Total 1750 ml 1650 ml Balance -724 ml -900 ml Intake Oral 600 ml 480 ml IV Total 426 ml 270 ml Output Urine Total 1750 ml 1650 ml # Bowel Movements 0 0 Result Diagram: 08/15/16 0510 08/15/16 0510 Other Results Laboratory Tests Test 08/14/16 08/14/16 08/15/16 08/15/16 06:26 09:42 05:10 09:36 Bedside Hemoglobin 13.9 G/DL Bedside Hematocrit 41.0 % Bedside Sodium 137 MMOL/L Bedside Potassium 4.0 MMOL/L Bedside Chloride 103 MMOL/L Bedside Blood Urea Nitrogen 27 MG/DL Bedside Creatinine 1.0 MG/DL Bedside Glucose 202 MG/DL Calcium Level 8.3 MG/DL 8.4 MG/DL Magnesium Level 1.9 MG/DL 2.0 MG/DL Total Creatine Kinase 121 U/L 673 U/L Creatine Kinase MB 1.9 NG/ML 39.0 NG/ML Troponin I 0.26 NG/ML White Blood Count 9.2 TH/MM3 7.1 TH/MM3 Red Blood Count 4.29 MIL/MM3 3.48 MIL/MM3 Hemoglobin 14.0 GM/DL 11.1 GM/DL Hematocrit 40.6 % 32.7 % Mean Corpuscular Volume 94.5 FL 94.1 FL Mean Corpuscular Hemoglobin 32.6 PG 32.0 PG Mean Corpuscular Hemoglobin 34.5 % 34.0 % Concent Red Cell Distribution Width 13.9 % 14.1 % Platelet Count 255 TH/MM3 187 TH/MM3 Mean Platelet Volume 7.8 FL 7.8 FL Neutrophils (%) (Auto) 46.7 % 69.9 % Lymphocytes (%) (Auto) 39.8 % 18.5 % Monocytes (%) (Auto) 7.2 % 8.8 % Eosinophils (%) (Auto) 5.7 % 2.5 % Basophils (%) (Auto) 0.6 % 0.3 % Neutrophils # (Auto) 4.3 TH/MM3 4.9 TH/MM3 Lymphocytes # (Auto) 3.7 TH/MM3 1.3 TH/MM3 Monocytes # (Auto) 0.7 TH/MM3 0.6 TH/MM3 Eosinophils # (Auto) 0.5 TH/MM3 0.2 TH/MM3 Basophils # (Auto) 0.1 TH/MM3 0.0 TH/MM3 CBC Comment DIFF FINAL DIFF FINAL Differential Comment Prothrombin Time 11.4 SEC Prothromb Time International 1.0 RATIO Ratio Activated Partial GREATER THAN Thromboplast Time 153.4 SEC B-Type Natriuretic Peptide 144 PG/ML Sodium Level 140 MEQ/L Potassium Level 3.7 MEQ/L Chloride Level 105 MEQ/L Carbon Dioxide Level 28.8 MEQ/L Anion Gap 6 MEQ/L Blood Urea Nitrogen 13 MG/DL Creatinine 0.89 MG/DL Estimat Glomerular Filtration 83 ML/MIN Rate Random Glucose 118 MG/DL Phosphorus Level 1.9 MG/DL Creatine Kinase MB % 5.8 % Imaging Last Impressions Chest X-Ray 08/14/16 0633 Signed Impressions: Service Date/Time: Sunday, August 14, 2016 06:28 - CONCLUSION: No acute disease. Samuel Mon MD FACR Objective Remarks General: NAD, AAOx3 Chest: CTA Cardiac: Regular Abd: +BS, soft ND/NT Ext: No edema A/P Problem List: (1) ST elevation myocardial infarction (STEMI) of inferior wall Status: Acute Plan: - Patient is a 75 y/o male admitted on 08/14/16 with complaints of chest pain and STEMI alert - Upon EMS arrival, a 12-lead EKG showed inferior ST elevation in lead 2, 3 and aVF. - Pt was given ASA and nitroglycerin prior to arrival. - Pt underwent LHC with Dr. Holland which showed occlusion of the RCA s/p SHANNON placement, 60 to 70% occlusion of the mid LAD, and total occlusion of the obtuse margin. - He was given Plavix, heparin, aspirin - No BB due to bradycardia and AVB - Case discussed with Dr. Pearl this morning and pt will likely require staged PCI of the LAD after full recovery from [place] - Await 2D echo results - Resume Lisinopril but at a lower dose of 5mg po BID. - Pt is allergic to statin therapy - Check Hgb A1C and Lipid panel in AM (2) 2Nd degree AV block Status: Acute Plan: - Pt noted to have 2nd degree AVB on EKG at admission. - No BB (3) HTN (hypertension) Status: Chronic Plan: - Resume Lisinopril at 5mg po BID - Hold on resuming CCB at this time. - Monitor vitals (4) Hyperlipidemia Status: Chronic Plan: - Check lipid panel in AM Assessment and Plan Patient examined. Assessment and plan formulated with Fanta Robert PA-C. I agree with the above. inf stemi with wenkeback 1st degree avb resolved shannon rca. has dz of lad and cx. will need futher pci outpt no bb. asa/plavix. resume low dose renetta transfer to cic and d/c in AM Fanta Robert Aug 15, 2016 14:18 Nam Marlow MD Aug 15, 2016 14:50
[2016-08-15] MEDS ORDERED: DOCUSATE SODIUM 100 MG CAP ONE (15:09)
[2016-08-15] MEDS: DOCUSATE SODIUM 100 MG CAP PO SCH ×2 (15:09→20:35)
[2016-08-15 15:12] VITALS: BP 150/81; PULSE 65; RESP 18; TEMP 97.8; O2SAT 100
[2016-08-15 17:54] LABS: HEMOGLOBIN A1a 1.2 %; HEMOGLOBIN A1b 0.8 %; HEMOGLOBIN Ao 85.4 %; HEMOGLOBIN F 0.8 %; HEMOGLOBIN LA1C 1.9 %; HEMOGLOBIN P3 3.9 %
[2016-08-15 20:00] VITALS: BP 168/86; PULSE 76; RESP 18; TEMP 98.4; O2SAT 92
[2016-08-15] MEDS ORDERED: LISINOPRIL 5 MG TAB PO SCH (21:00)
[2016-08-16] VITALS: BP 154/95; PULSE 78; RESP 16; O2SAT 94
[2016-08-16 04:00] VITALS: BP 145/88; PULSE 68; RESP 20; O2SAT 94
[2016-08-16] MEDS: INSULIN NovoLIN REGULAR SUPPLEMENTAL SCALE SQ SCH (05:00)
[2016-08-16 05:38] LABS: AUTOMATED NEUTROPHIL # 6.1 TH/MM3 (1.8-7.7); BASOPHIL % 0.3 % (0.0-2.0); EOSINOPHIL # 0.2 TH/MM3 (0-0.4); EOSINOPHIL % 2.3 % (0.0-4.0); HEMATOCRIT 38.2 % (39.0-51.0); HEMO FLAGS DIFF FINAL; LYMPH % 16.2 % (9.0-44.0); LYMPHOCYTE # 1.4 TH/MM3 (1.0-4.8); MEAN CORPUSCULAR HEMOGLOBIN 31.8 PG (27.0-34.0); MEAN CORPUSCULAR HGB CONC 33.8 % (32.0-36.0); MONO % 10.4 % (0.0-8.0); NEUT % 70.8 % (16.0-70.0); PLATELET COUNT 191 TH/MM3 (150-450); RED BLOOD COUNT 4.06 MIL/MM3 (4.50-5.90); RED CELL DISTRIBUTION WIDTH 13.4 % (11.6-17.2); WHITE BLOOD COUNT 8.6 TH/MM3 (4.0-11.0)
[2016-08-16] MEDS: HEPARIN SODIUM - SQ 10,000 UNITS/ML VIAL SQ SCH (06:00)
[2016-08-16 06:01] LABS: BICARBONATE 27.3 MEQ/L (21.0-32.0); POTASSIUM 3.7 MEQ/L (3.5-5.1)
[2016-08-16 06:03] LABS: HDL CHOLESTEROL 46.4 MG/DL (40.0-60.0)
[2016-08-16 07:41] VITALS: BP 159/94; PULSE 65; PULSE 68; RESP 22; TEMP 98.2; O2SAT 97
[2016-08-16] MEDS: CLOPIDOGREL 75 MG TAB PO SCH (08:26)
[2016-08-16] MEDS: DOCUSATE SODIUM 100 MG CAP PO SCH (08:26)
[2016-08-16] MEDS: ASPIRIN 81 MG CHEW TAB PO SCH (08:26)
--- NOTE | 2016-08-16 08:42 | HHI.PR ---
Subjective Remarks doing ok. Objective Vitals nad oriented no labored breathing. Vital Signs Date Time Temp Pulse Resp B/P Pulse Ox O2 Delivery O2 Flow Rate FiO2 08/16/16 07:41 98.2 68 22 159/94 97 08/16/16 07:41 65 08/16/16 07:41 97 Room Air 08/16/16 04:00 94 Room Air 08/16/16 04:00 68 08/16/16 04:00 68 20 145/88 94 08/16/16 00:00 78 08/16/16 00:00 78 16 154/95 94 08/16/16 00:00 94 Room Air 08/15/16 20:00 76 08/15/16 20:00 92 Room Air 08/15/16 20:00 98.4 76 18 168/86 92 08/15/16 15:12 100 Room Air 08/15/16 15:12 65 08/15/16 15:12 97.8 65 18 150/81 100 08/15/16 11:11 98 Room Air 08/15/16 11:09 98.6 59 20 143/79 98 08/15/16 08/15/16 08/16/16 15:00 23:00 07:00 Intake Total 900 ml 240 ml Output Total 1830 ml 2750 ml Balance -930 ml -2510 ml Intake Oral 900 ml 240 ml Output Urine Total 1830 ml 2750 ml # Voids 5 # Bowel Movements 0 0 Result Diagram: 08/16/16 0512 08/16/16 0512 Imaging Last Impressions Chest X-Ray 08/14/16 0633 Signed Impressions: Service Date/Time: Sunday, August 14, 2016 06:28 - CONCLUSION: No acute disease. Samuel Mon MD FACR A/P Problem List: (1) ST elevation myocardial infarction (STEMI) of inferior wall Status: Acute Plan: - Patient is a 75 y/o male admitted on 08/14/16 with complaints of chest pain and STEMI alert - Upon EMS arrival, a 12-lead EKG showed inferior ST elevation in lead 2, 3 and aVF. - Pt was given ASA and nitroglycerin prior to arrival. - Pt underwent LHC with Dr. Holland which showed occlusion of the RCA s/p MIRTA placement, 60 to 70% occlusion of the mid LAD, and total occlusion of the obtuse margin. - He was given Plavix, heparin, aspirin - No BB due to bradycardia and AVB - Case discussed with Dr. Pearl this morning and pt will likely require staged PCI of the LAD after full recovery from [place] - Await 2D echo results - d/c home. discussed with dr Pearl. hold bb and statin due to carlos and also myalgia. needs staged lhc. (2) 2Nd degree AV block Status: Acute Plan: - Pt noted to have 2nd degree AVB on EKG at admission. - No BB (3) HTN (hypertension) Status: Chronic Plan: resume renetta. (4) Hyperlipidemia Status: Chronic Plan: - Check lipid panel in AM Nam Marlow MD Aug 16, 2016 08:42
[2016-08-16] MEDS ORDERED: PLAV75TA29 PO (08:44)
[2016-08-16] MEDS ORDERED: METF500T PO (08:44)
--- NOTE | 2016-08-16 08:44 | HHI.DCPOC ---
Discharge Care Plan Diagnosis: (1) ST elevation myocardial infarction (STEMI) of inferior wall (2) 2Nd degree AV block (3) HTN (hypertension) Goals to Promote Your Health * To prevent worsening of your condition and complications * To maintain your health at the optimal level Directions to Meet Your Goals Take your medications as prescribed Follow your dietary instruction Follow activity as directed Keep your appointments as scheduled Take your immunizations and boosters as scheduled If your symptoms worsen call your PCP, if no PCP go to Urgent Care Center or Emergency Room Smoking is Dangerous to Your Health. Avoid second hand smoke Call the 24-hour hour crisis hotline for domestic abuse at Nam Marlow MD Aug 16, 2016 08:44
[2016-08-16] MEDS ORDERED: LISINOPRIL 20 MG TAB PO SCH (09:00)
--- NOTE | 2016-08-16 10:51 | EKG ---
Date Performed: 08/15/2016 Time Performed: 14:10:36 PTAGE: 75 years EKG: Sinus bradycardia with PVC(s) Prolonged QT interval Left axis deviation Inferior infarct - age undetermined Anterolateral ST-T changes may be due to myocardial ischemia Compared to previous tr acing, there are biphasic and inverted T waves in the inferior and anterolateral leads consistent wit h an evolving AL. Compared to previous tracing, there does appear to be ST changes consistent with an evolving inferior AL. Clinical correlation is recommended. Abnormal ECG PREVIOUS TRACING : 08/14/2016 06.33 DOCTOR: Rita Davis Interpretating Date/Time 08/16/2016 10:51:07
--- NOTE | 2016-08-16 11:09 | EC ---
Study Study Date:08/15/2016 STUDY CONCLUSIONS SUMMARY - Left ventricle: The cavity size was normal. Wall thickness was increased in a pattern of mild LVH. Systolic function was normal. The estimated ejection fraction was in the range of 50% to 55%. Mild hypokinesis of the mid-distal inferior myocardium. Doppler parameters are consistent with abnormal left ventricular relaxation (grade 1 diastolic dysfunction). - Aortic valve: Mild regurgitation. Valve area: 2.37cm^2(VTI). Valve area: 2.23cm^2 (Vmax). If LV function is below 40, please consider prescribing an ACEI or ARB or document rationale for non-use. PROCEDURE DATA STUDY STATUS: Elective. Procedure: Transthoracic echocardiography. Image quality was good. Scanning was performed from the parasternal, apical, and subcostal acoustic windows. Study completion: The patient tolerated the procedure well. Transthoracic echocardiography. M-mode, complete 2D, complete spectral Doppler, and color Doppler. Height: Height: 70in. Weight: Weight: 164.7lb. Body mass index: BMI: 23.7kg/m^2. Body surface area: BSA: 1.92m^2. Patient status: Inpatient. CARDIAC ANATOMY LEFT VENTRICLE: The cavity size was normal. Wall thickness was increased in a pattern of mild LVH. Systolic function was normal. The estimated ejection fraction was in the range of 50% to 55%. Regional wall motion abnormalities: Mild hypokinesis of the mid-distal inferior myocardium. Doppler parameters are consistent with abnormal left ventricular relaxation (grade 1 diastolic dysfunction). AORTIC VALVE: Probably trileaflet; normal thickness, mildly calcified leaflets. Doppler: Transvalvular velocity was within the normal range. There was no stenosis. Mild regurgitation. Valve area: 2.37cm^2(VTI). Indexed valve area: 1.23cm^2/m^2 (VTI). Valve area: 2.23cm^2 (Vmax). Indexed valve area: 1.16cm^2/m^2 (Vmax). Mean gradient: 7mm Hg (S). Peak gradient: 14mm Hg (S). AORTA: Aortic root: The aortic root was normal in size. MITRAL VALVE: Structurally normal valve. Doppler: Transvalvular velocity was within the normal range. There was no evidence for stenosis. Trace to mild regurgitation. Peak gradient: 2mm Hg (D). LEFT ATRIUM: The atrium was at the upper limits of normal in size. RIGHT VENTRICLE: The cavity size was normal. Wall thickness was normal. PULMONIC VALVE: Doppler: Transvalvular velocity was within the normal range. There was no evidence for stenosis. No regurgitation. TRICUSPID VALVE: Structurally normal valve. Doppler: Transvalvular velocity was within the normal range. Trace regurgitation. PULMONARY ARTERY: The main pulmonary artery was normal-sized. Systolic pressure was within the normal range. RIGHT ATRIUM: The atrium was normal in size. PERICARDIUM: There was no pericardial effusion. SYSTEMIC VEINS: Inferior vena cava: The vessel was normal in size. Patient weight: 164.7lb _Ejection fraction:_ 65-75% _Fractional shortening:_ 32% up to 5Kg 5-11.5Kg 11.6-22.9Kg 23-45Kg 45-57Kg Aortic Root 7-13 <17 13-22 17-27 17-27 LA diam 6-13 <23 24-38 33-47 37-40 RVID 10-17 7-15 7-15 7-18 8-17 LVIDd 12-22 <32 24-38 33-47 37-40 LVPW 2-4 3-6 5-7 6-8 7-8 IVS 2-4 3-6 5-7 6-8 7-8 BASIC MEASUREMENTS ADULT NORMAL Left ventricle LV internal dimension, ED, chordal 50.1 mm 43-52 level, PLAX LV internal dimension, ES, chordal 37.1 mm 23-38 level, PLAX Fractional shortening, chordal level, *26 % >29 PLAX LV posterior wall thickness, ED 11.6 mm IVS/LVPW ratio, ED 1.01 <1.3 Ventricular septum Septal thickness, ED 11.7 mm Aortic valve Leaflet separation 21 mm 15-26 Aorta Root diameter, ED 34 mm Left atrium Anterior-posterior dimension 38 mm Anterior-posterior dimension index 1.98 cm/m^2 <2.2 BASIC MEASUREMENTS ADULT NORMAL Aortic valve Leaflet separation 21 mm 15-26 DOPPLER MEASUREMENTS ADULT NORMAL Main pulmonary artery Pressure, S 27 mm Hg =30 Aortic valve Peak velocity, S 189 cm/s Mean velocity, S 118 cm/s VTI, S 38.3 cm Mean gradient, S 7 mm Hg Peak gradient, S 14 mm Hg Valve area, VTI 2.37 cm^2 Valve area index, VTI 1.23 cm^2/m^2 Valve area, Vmax 2.23 cm^2 Valve area index, Vmax 1.16 cm^2/m^2 Regurgitant velocity, ED 482 cm/s Regurgitant deceleration 5150 cm/s^2 Regurgitant pressure half-time 274 ms Regurgitant gradient, ED 93 mm Hg Mitral valve Peak E-wave velocity 74 cm/s Peak A-wave velocity 89.8 cm/s Deceleration time *317 ms 150-230 Peak gradient, D 2 mm Hg Peak E/A ratio 0.8 Tricuspid valve Regurgitant peak velocity 242 cm/s Peak RV-RA gradient, S 23 mm Hg Maximal regurgitant velocity 242 cm/s Systemic veins Estimated CVP 5 mm Hg Right ventricle RV pressure, S 28 mm Hg <30 Pulmonic valve Peak velocity, S 58.7 cm/s LEGEND: Mean values are shown as u=mean value. Asterisk (*) guthrie values outside specified normal range. Prepared and signed by Nathaniel Pearl [id number]
--- NOTE | 2016-08-16 16:04 | EKG ---
Date Performed: 08/16/2016 Time Performed: 05:15:42 PTAGE: 75 years EKG: Sinus rhythm with 1st degree A-V block Prolonged QT interval Left axis deviation Inferior infarct - age undetermi festus Possible left ventricular hypertrophy Anterolateral T wave changes may be due to hypertrophy and/ or ischemia Compared to prior tracing no significant change Abnormal ECG PREVIOUS TRACING : 08/15/2016 14.10 DOCTOR: Rita Davis Interpretating Date/Time 08/16/2016 16:02:59
== END 2016-08-16 09:44 | disposition home or self-care (01) | DRG 247 ==
LOC: NEPE 06:27 → NEDA 06:37 → HCVR 09:29
PROVIDERS: ADMIT Hospitalist; ATTEND Hospitalist
PROC: 027034Z Dilation of Coronary Artery, One Artery with Drug-eluting Intraluminal Device, Percutaneous Approach (ICD-10-PCS; principal; 2016-08-14)
PROC: 4A023N7 Measurement of Cardiac Sampling and Pressure, Left Heart, Percutaneous Approach (ICD-10-PCS; 2016-08-14)
PROC: B2111ZZ Fluoroscopy of Multiple Coronary Arteries using Low Osmolar Contrast (ICD-10-PCS; 2016-08-14)
DX: I21.11 ST elevation (STEMI) myocardial infarction involving right coronary artery (principal); I44.1 Atrioventricular block, second degree; E11.9 Type 2 diabetes mellitus without complications; I11.9 Hypertensive heart disease without heart failure; I25.84 Coronary atherosclerosis due to calcified coronary lesion; E78.5 Hyperlipidemia, unspecified; N40.0 Benign prostatic hyperplasia without lower urinary tract symptoms; I25.10 Atherosclerotic heart disease of native coronary artery without angina pectoris; G47.30 Sleep apnea, unspecified; Z79.84 Long term (current) use of oral hypoglycemic drugs; Z98.1 Arthrodesis status
CPT/HCPCS: 71010; 80048; 80061; 82310; 82435; 82550; 82552; 82565; 82947; 82948; 83036; 83735; 83880; 84100; 84132; 84295; 84484; 84520; 85002; 85025; 85347; 85610; 85730; 92941; 93005; 93306; 93454; C1725; C1769; C1874; C1887; C1893; J0153; J1644; J2250; J2270; J2405; J3010; J7030; Q9967

== ENCOUNTER 2016-09-01 06:30 | Day surgery (SDC) | payer MEDICARE ==
[~2016-09-01] VITALS: Ht 177.8 cm; Wt 78.6 kg
[~2016-09-01 06:30] MED LIST changes: -AMLO10TA2 PO; -CLOM50TA2 PO; -CYCL1TAB29 PO; +PLAV75TA29 PO
[2016-09-01] MEDS ORDERED: NS 1000P @30 MLS/HR (KVO) IV SCH (07:15)
[2016-09-01 07:25] VITALS: BP 146/77; PULSE 62; RESP 18; TEMP 98; O2SAT 95
[2016-09-01] MEDS ORDERED: CETI10CH CHEW (07:32)
[2016-09-01] MEDS ORDERED: NITR1SUB3 SL (07:32)
[2016-09-01] MEDS ORDERED: TRAM50TA PO (07:32)
[2016-09-01] MEDS ORDERED: AMLO10TA2 PO (07:33)
[2016-09-01] MEDS ORDERED: IOHEXOL 350 MG/ML 100 ML BTL (for Cath Lab) OTHER ONE (08:35)
[2016-09-01] MEDS ORDERED: IOHEXOL 350 MG/ML 50 ML BTL (for Cath Lab) OTHER ONE (08:35)
[2016-09-01] MEDS ORDERED: HEPARIN-NS/PF INJ 500 ML ONE (08:38)
[2016-09-01] MEDS ORDERED: MIDAZOLAM HCL 2 MG/2 ML VIAL ONE (08:39)
[2016-09-01] MEDS ORDERED: HEPARIN SODIUM - IV 10,000 UNITS/10 ML VIAL ONE (09:04)
[2016-09-01] MEDS ORDERED: BIVALIRUDIN 250 MG VIAL ONE (09:17)
[2016-09-01] MEDS ORDERED: CLOPIDOGREL 75 MG TAB ONE (09:49)
[2016-09-01] MEDS ORDERED: NITROGLYCERIN 400 MCG/SPRAY 4.9 GM BOTTLE SL ONE (09:51)
[2016-09-01] MEDS ORDERED: BIVALIRUDIN INJ 250 MG in SODIUM CHLORIDE 0.9% INJ 50 ML IV SCH (09:55)
[2016-09-01] MEDS ORDERED: ISOS30TA3 PO (09:59)
[2016-09-01] MEDS ORDERED: MISC INFORMATION XX ONE (10:00)
[2016-09-01] MEDS ORDERED: BACITRACIN OINT 0.9 GM PKT TOP ONE (10:00)
[2016-09-01] MEDS ORDERED: LIDOCAINE 2% JELLY 30 ML TUBE TOP PRN (10:00)
[2016-09-01] MEDS ORDERED: MORPHINE SULFATE 4 MG/ML INJ IV PUSH PRN (10:00)
[2016-09-01] MEDS ORDERED: oxyCODONE/ACETAMINOPHEN 10 MG/325 MG TAB PO PRN (10:00)
[2016-09-01] MEDS ORDERED: NITROGLYCERIN 400 MCG/SPRAY 4.9 GM BOTTLE SL PRN (10:30)
[2016-09-01] MEDS ORDERED: ISOSORBIDE MONONITRATE 30 MG TAB PO ONE (10:30)
[2016-09-01] MEDS: oxyCODONE/ACETAMINOPHEN 5 MG/325 MG TAB PO PRN ×2 (10:37→12:15)
--- NOTE | 2016-09-01 11:31 | MA ---
cc: JESSI GOODE MD DATE: 09/01/2016 INDICATION Staged percutaneous intervention of the left anterior descending coronary artery after recent inferior ST-elevation OR back on August 15, 2016 which he received drug-eluting stent to the mid-right coronary artery. PROCEDURES PERFORMED 1. Fluoroscopy with interpretation. 2. Left heart catheterization. 3. Coronary angiography. 4. Percutaneous intervention with drug-eluting stent to the mid left anterior descending coronary artery. METHOD Risks, benefits and alternatives were discussed with the patient. The patient understood and consented to the procedure. The patient was brought into the catheterization lab and placed on the catheterization table. Right wrist was prepped and draped in sterile fashion. Right wrist was anesthetized with 2% lidocaine. Right radial artery is cannulated. A 6-English 7 cm sheath was placed without difficulty. LEFT HEART CATHETERIZATION A 6-English JR-5 catheter was advanced across the aortic valve without difficulty. Intraventricular hemodynamics measured at 99 over 2 mmHg, left ventricular end-diastolic pressure 5 mmHg. No significant aortic stenosis by transaortic valve or pullback gradient. CORONARY ANGIOGRAPHY 1. Left main coronary has minor luminal irregularities. 2. Left anterior descending coronary is calcified to its proximal to mid course, there is 80% stenosis in the mid segment, there is several diagonal branches which have mild to moderate rather diffuse disease. The distal left anterior descending coronary has minor luminal irregularities. 3. Left circumflex gives rise to a obtuse marginal branch, there is a subtotally occluded small first OM, less than 2 mm caliber size vessel. There is a ramus intermedius branch with minor luminal irregularities. RIGHT CORONARY ARTERY The right coronary is a dominant vessel giving rise to posterior descending branch. The right coronary has stents present through its mid course. At the distal stent there appears to be slight step-down with 30-40% stenosis present. The distal right coronary artery which leads to the bifurcation of posterior lateral and posterior descending branch has rather diffuse 90% stenosis but the distal vessels are smaller caliber size. PERCUTANEOUS INTERVENTION The patient does have small branch vessel disease involving the distal right coronary and obtuse marginal branches, both of which do not appear to be very good percutaneous candidates for intervention. Will plan to medically manage those. Attention was then directed towards the mid left anterior descending coronary artery stenosis. Left coronary circulation was selectively engaged with 6-English AL-2 guide catheter, 0.014 inch 180 cm Terumo run-through wire was navigated down the distal left anterior descending coronary artery. A 2.5 x 20 mm RX Euphora balloon was then deployed through the proximal segment on two sequential inflations to 10 atmospheres. Repeat angiography showed still severe residual stenosis with TIFFANY III flow. We decided then to proceed with endovascular stenting. A 2.75 x 30 mm RX Resolute drug-eluting stent was advanced down the mid left anterior descending coronary artery and deployed. Repeat angiography showed TIFFANY III flow. There is a small second diagonal branch that had plaque shifting and no longer visualized because it was a very small caliber size vessel. First diagonal branch was widely patent. There is no significant residual stenosis, TIFFANY III flow. Guide catheter was removed. HemoBand was applied. Angiomax was administered throughout the entire procedure to maintain appropriate anticoagulation. CONCLUSION 1. 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 2. Branch vessel coronary disease involving the first obtuse marginal branch and distal posterior descending and posterolateral branches. 3. Normal left-sided filling pressures. 4. Successful percutaneous intervention with drug-eluting stent to the mid left anterior descending coronary artery. PLAN The patient will be monitored closely for any postprocedure complications. Will continue with aggressive risk factor modification with aspirin and antiplatelet therapy. Will plan to add a long-acting nitrate for small-vessel disease. No beta-paul secondary to bradycardia. MD GAEL Roger/KAVITA /9:52 AM /11:10 AM
[2016-09-02] MEDS ORDERED: ISOSORBIDE MONONITRATE 30 MG TAB PO SCH (07:00)
[2016-09-02] MEDS ORDERED: ASPIRIN 81 MG CHEW TAB PO SCH (09:00)
[2016-09-02] MEDS ORDERED: CLOPIDOGREL 75 MG TAB PO SCH (09:00)
--- NOTE | 2016-09-02 20:02 | EKG ---
Date Performed: 09/01/2016 Time Performed: 12:07:04 PTAGE: 75 years EKG: Sinus rhythm with wenkebach AV block Inferior infarct, age undeterminate ST-T abnormalities, cannot exclude ische jaclyn Compared to previous tracing, delfina is new Abnormal ECG PREVIOUS TRACING : 08/16/2016 05.15 DOCTOR: Kwasi Aden Interpretating Date/Time 09/02/2016 20:02:08
== END 2016-09-01 16:25 | disposition home or self-care (01) ==
LOC: HDOC 06:30 → HDIC 06:30 → HDOC 16:25
PROVIDERS: ATTEND Internal Medicine
DX: I35.0 Nonrheumatic aortic (valve) stenosis (principal); I25.10 Atherosclerotic heart disease of native coronary artery without angina pectoris; Z95.5 Presence of coronary angioplasty implant and graft
CPT/HCPCS: 86850; 86900; 86901; 92928; 93005; 93454; C1725; C1769; C1874; C1887; C1893; J0583; J1644; J2250; J3010; Q9967

== ENCOUNTER 2017-09-19 07:15 | Day surgery (SDC) | payer MEDICARE ==
[~2017-09-19 07:15] MED LIST changes: +AMLO10TA2 PO; +CETI10CH CHEW; +ISOS30TA3 PO; -METF500T PO; -MIRA33504 PO; +NITR1SUB3 SL; +TRAM50TA PO
[2017-09-19] MEDS ORDERED: PROPOFOL 200 MG/20 ML AMP ONE ×3 (07:56→08:39)
[2017-09-19] MEDS ORDERED: LIDOCAINE HCL 2% 100 MG/5 ML SYRINGE ONE (07:57)
[2017-09-19] MEDS ORDERED: METF500T PO (08:05)
[2017-09-19] MEDS ORDERED: EZET1TAB8 PO (08:05)
[2017-09-19] MEDS ORDERED: TEST200I12 IM (08:05)
[2017-09-19] MEDS ORDERED: MIRTA15 PO (08:05)
[2017-09-19] MEDS ORDERED: HYDR-3516 PO (08:05)
[2017-09-19] MEDS ORDERED: ASPI-516 CHEW (08:05)
[2017-09-19] MEDS ORDERED: POVIDONE IODINE 5% (ANTISEPSIS KIT) 4 APPLICATIONS EACH NARE PRN (08:45)
[2017-09-19] MEDS ORDERED: METOPROLOL TARTRATE 25 MG TAB PO PRN (08:45)
[2017-09-19] MEDS ORDERED: CHLORHEXIDINE GLUCONATE 2 % 1 PACK (2 CLOTHS) TOPICAL PRN (08:45)
[2017-09-19] MEDS ORDERED: SODIUM CHLORID 0.9% 500 ML IV PRN (08:45)
[2017-09-19] MEDS ORDERED: LACTATED RINGER'S 1000 ML IV PRN (08:45)
--- NOTE | 2017-09-19 14:35 | ECHRPT ---
Indication: MODERATE TO SEVERE MR CONCLUSIONS Normal left ventricular size. Mild concentric left ventricular hypertrophy. The left ventricular systolic function is normal with an estimated ejection fraction in the range of 55-60%. The left atrial size is mildly dilated. Mild thickening of the mitral valve leaflets. Aqft-jo-ihkbetjw mitral valve regurgitation. BP: / HR: Rhythm: Technical Quality: Medications Complications Proc. Components The patient was brought to the diagnostic imaging area in a fasting state after o btaining an informed consent. The patient was premedicated with IV Versed and IV Fentanyl. The hollow handle knife assembler ior pharynx was sprayed with Cetacaine spray and the patient was administered viscous Xylocaine 2 %. The HARDIK probe was passed into the posterior pharynx , mid-esophagus, distal esophagus, and gastric fundus. AHRDIK was performed at multiple levels. The patient tolerated the procedure well and there were no complications. The patient was transferred to the floor in satisfactory condition.. FINDINGS LEFT VENTRICLE Normal left ventricular size. Mild concentric left ventricular hypertrophy. The left ventricular systolic function is normal with an estimated ejection fraction in the range of 55-60%. RIGHT VENTRICLE Normal right ventricular size and systolic function. LEFT ATRIUM The left atrial size is mildly dilated. RIGHT ATRIUM The right atrial size is normal. ATRIAL APPENDAGES Normal left atrial appendage size with no evidence of thrombus formation. ATRIAL SEPTUM Normal atrial septal thickness without atrial level shunting by limited color doppler interrogation. AORTA The aortic root and proximal ascending aorta are normal in size on limited imaging. MITRAL VALVE Mild thickening of the mitral valve leaflets. Xdzm-ax-oryqwrzj mitral valve regurgitation. AORTIC VALVE Trileaflet aortic valve. No aortic valve stenosis or regurgitation. TRICUSPID VALVE Structurally normal tricuspid valve. No tricuspid valve stenosis or regurgitation. VESSELS The inferior vena cava is normal in size. PULMONARY VALVE The pulmonary valve is not well visualized. PERICADIUM No pericardial effusion. Nathaniel Pearl MD, FACC (Electronically Signed) Final Date:19 Sep 2017 14:35
== END 2017-09-19 10:33 | disposition home or self-care (01) ==
LOC: HDIC 07:15 → HDOC 07:15
PROVIDERS: ATTEND Internal Medicine
DX: I34.0 Nonrheumatic mitral (valve) insufficiency (principal)
CPT/HCPCS: 93312; 93320; 93325

== ENCOUNTER 2017-10-15 10:51 | Emergency (ER) | payer MEDICARE ==
[~2017-10-15] VITALS: Ht 177.8 cm; Wt 78.0 kg
[~2017-10-15 10:51] MED LIST changes: +ASPI-516 CHEW; -ASPI1TAB69 PO; -COLA100C3 PO; +EZET1TAB8 PO; -HYDR-3366 PO; +HYDR-3516 PO; +METF500T PO; +MIRTA15 PO; +TEST200I12 IM; -TRAM50TA PO
[2017-10-15 10:55] VITALS: BP 166/78; PULSE 57; RESP 16; TEMP 98.1; O2SAT 98
[2017-10-15] MEDS ORDERED: PROPARACAINE HCL 0.5% OPHT SOLN 15 ML BTL EACH EYE ONE (11:15)
--- NOTE | 2017-10-15 11:23 | PD ---
HPI Chief Complaint: Eye Problems/Injury Time Seen by Provider: 11:06 Travel History International Travel<30 days: No Contact w/Intl Traveler<30days: No Traveled to known affect area: No History of Present Illness HPI 76-year-old male presents emergency department for evaluation of left eye irritation that started yesterday while in the yard. Says that he was doing yard work and believes he got a piece of dirt in his eye. Says that his eyes irritated and feels as if something is "scratching" his eye. He denies significant pain. Denies blurred vision. Denies headaches. Says he went to urgent care this morning with a recommended he come here to the emergency department for suspicion of a foreign body in the eye that they were unable to remove. No other complaints today. PFSH Past Medical History Cancer: No Cardiac Catheterization: Yes (2 stents) Cardiovascular Problems: Yes (HX HEART RHYTHM PROBLEM) Diabetes: Yes (TYPE II) Patient Takes Glucophage: Yes Diminished Hearing: No Endocrine: Yes Gastrointestinal Disorders: No Genitourinary: Yes (ENLARGED PROSTATE) Hepatitis: No Hiatal Hernia: No Hypertension: Yes Immune Disorder: No Musculoskeletal: Yes (LOWER BACK PAIN, DDD) Neurologic: No Psychiatric: No Reproductive: No Immunizations Current: Yes Myocardial Infarction: Yes Thyroid Disease: No Influenza Vaccination: No ?: Not Past Surgical History Abdominal Surgery: No AICD: No Body Medical Devices: NONE Cardiac Surgery: No Ear Surgery: No Endocrine Surgery: No Eye Surgery: No Genitourinary Surgery: No Joint Replacement: No Neurologic Surgery: No Oral Surgery: Yes (TONSILLECTOMY/ADENOIDECTOMY) Pacemaker: No Thoracic Surgery: No Other Surgery: Yes Social History Alcohol Use: No Tobacco Use: No Substance Use: No Allergies-Medications (Allergen,Severity, Reaction): Coded Allergies: atorvastatin (Unverified Allergy, Unknown, 10/15/17) pravastatin (Unverified Allergy, Unknown, 10/15/17) simvastatin (Unverified Allergy, Unknown, 10/15/17) Reported Meds & Prescriptions Reported Meds & Active Scripts Active Erythromycin Opth Oint 5 Mg/Gm Oint 1 Applic LEFT EYE BID 7 Days Isosorbide Mononitrate ER (Isosorbide Mononitrate) 30 Mg Javi 30 Mg PO DAILY 30 Days Plavix (Clopidogrel Bisulfate) 75 Mg Tab 75 Mg PO DAILY Reported Testosterone Cypionate Inj (Testosterone Cypionate) 200 Mg/Ml Inj 200 Mg IM Q14D Mirtazapine 15 Mg Tab 15 Mg PO HS Metformin (Metformin HCl) 500 Mg Tab 500 Mg PO DAILY With a meal Hydrocodone-Acetaminophen 5-325 mg Tab 1 Tab PO HS PRN Ezetimibe 10 Mg Tab 10 Mg PO DAILY Aspirin 81 Mg Chew 81 Mg CHEW DAILY Amlodipine (Amlodipine Besylate) 10 Mg Tab 10 Mg PO DAILY Nitroglycerin SL (Nitroglycerin) 0.4 Mg Subl 0.4 Mg SL DIRECTED PRN ONE TABLET UNDER THE TONGUE NEEDED FOR CHEST PAIN, MAY REPEAT EVERY FIVE MINUTES FOR A TOTAL OF 3 DOSES OR CALL 911 IF NO RELIEF Cetirizine (Cetirizine HCl) 10 Mg Chew 10 Mg CHEW DAILY Niaspan (Niacin) 500 Mg Tab 500 Mg PO HS Lisinopril 20 Mg Tab 20 Mg PO BID Review of Systems Except as stated in HPI: all other systems reviewed are Neg Physical Exam Narrative GENERAL: Well-nourished, well-developed patient, in NAD SKIN: Focused skin assessment warm/dry. No rashes or lesions. HEAD: Normocephalic. Atraumatic. EYES: No scleral icterus. No injection or drainage. PERRLA, EOMI Left eye-copious clear discharge, Nahid sign negative, fluorescein stain negative. THROAT: No pharyngeal injection, exudates, or tonsillar hypertrophy. Airway is patent. NECK: Supple, trachea midline. No JVD or lymphadenopathy. No meningismus. CARDIOVASCULAR: Regular rate and rhythm without murmurs, gallops, or rubs. RESPIRATORY: Breath sounds equal bilaterally. No accessory muscle use. No wheezes, rales, or rhonchi MUSCULOSKELETAL: No cyanosis, or edema. BACK: Nontender without obvious deformity. No CVA tenderness. Data Data Last Documented VS Vital Signs Date Time Temp Pulse Resp B/P (MAP) Pulse Ox O2 Delivery O2 Flow Rate FiO2 10/15/17 10:55 98.1 57 16 166/78 (107) 98 Orders Orders Proparacaine 0.5% Opth Soln (Alcaine 0.5 (10/15/17 11:15) Eye Irrigation (10/15/17 11:19) MDM Medical Decision Making Medical Screen Exam Complete: Yes Emergency Medical Condition: Yes Differential Diagnosis Left eye foreign body, corneal abrasion, corneal ulcer, gingivitis Narrative Course 76-year-old male presents emergency department for evaluation of left eye irritation started yesterday while performing yard work. Says that he believes that he had a piece of dirt over the foreign body in the eye so he went to urgent care today where they advised to come to the emergency department for further evaluation. Physical exam findings: EOMI, PERRLA, no significant scleral injection, watery discharge, no fluorescein stain uptake. Negative Nahid sign. The eye was irrigated thoroughly with 1 L normal saline. Another eye exam was performed where a black piece of debris was removed. Patient says that his symptoms are greatly improved and he has no other complaints today. Patient be discharged with erythromycin ointment. He is advised to follow-up an physician credentialing specialist for further issues. Follow-up with primary care physician. Diagnosis Primary Impression: Foreign body, eye Qualified Codes: T15.92XA - Foreign body on external eye, part unspecified, left eye, initial encounter Referrals: Program Strategist Patient Instructions: Eye Wash (Into the eye), General Instructions Additional Instructions: Avoid scratching the eye to reduce complications. Follow-up with an physician credentialing specialist tomorrow peer Scripts Erythromycin Opth Oint (Erythromycin Opth Oint) 5 Mg/Gm Oint 1 APPLIC LEFT EYE BID for Infection for 7 Days, #1 TUBE 0 Refills Prov: Jamee Rodriguez DO 10/15/17 Disposition: 01 DISCHARGE HOME Condition: Stable Madison Leos Oct 15, 2017 11:23
[2017-10-15] MEDS ORDERED: ERYTOIN10 LEFT EYE (11:24)
== END 2017-10-15 12:33 | disposition home or self-care (01) ==
LOC: PHEFT 10:51
DX: T15.92XA Foreign body on external eye, part unspecified, left eye, initial encounter (principal); E11.9 Type 2 diabetes mellitus without complications; I10 Essential (primary) hypertension; I25.2 Old myocardial infarction; N40.0 Benign prostatic hyperplasia without lower urinary tract symptoms; Z79.02 Long term (current) use of antithrombotics/antiplatelets; Z79.82 Long term (current) use of aspirin; Z79.899 Other long term (current) drug therapy
CPT/HCPCS: 99283